=== PATIENT | male | born 1945 | race Hispanic/Latino ===

== ENCOUNTER 2019-08-13 17:25 | Emergency (ER) | payer MEDICARE ==
[2019-08-13 19:55] LABS: Basophils # (Auto) 0.1 K/mm3 (0.0-0.1); Basophils % (Auto) 0.5 % (0.0-1.8); Eosinophils % (Auto) 0.2 % (0.0-4.3); Hematocrit 38.4 % (35.5-45.6); Hemoglobin 12.4 gm/dl (11.8-15.2); Lymphocytes # (Auto) 0.9 K/mm3 (1.2-5.4); Lymphocytes % (Auto) 6.9 % (13.4-35.0); Mean Corpuscular HGB Conc 32 % (32-34); Mean Corpuscular Volume 88 fl (84-94); Monocytes # (Auto) 0.6 K/mm3 (0.0-0.8); Monocytes % (Auto) 4.8 % (0.0-7.3); Platelet Count 330 K/mm3 (140-440); Red Blood Count 4.38 M/mm3 (3.65-5.03); Red Cell Distribution Width 17.6 % (13.2-15.2)
[2019-08-13 20:16] LABS: Alanine Aminotransferase 12 units/L (7-56); Albumin 3.7 g/dL (3.9-5); BUN/Creatinine Ratio 27; Blood Urea Nitrogen 27 mg/dL (9-20); Calcium 10.2 mg/dL (8.4-10.2); Hemolysis Index 0
[2019-08-13] MEDS ORDERED: ACETAMINOPHEN 325 MG/10.15 ML ORAL LIQD UNIT DOSE FEEDTUBE ONE (20:36)
--- NOTE | 2019-08-13 20:36 | Emergency Department Report ---
HPI - General Chief Complaint: Fall Time Seen by Provider: 08/13/19 18:24 - HPI HPI: 74-year-old male presents to the emergency department from his [facility] assisted facility after the patient allegedly had a fall this morning. The patient appears to have had an x-ray done of his head/skull that did not show any fracture but was a limited examination. The patient was then sent in for further evaluation. He has a past medical history of diabetes, hypertension, Parkinson's disease, hypothyroidism, dementia, hyperlipidemia, pressure ulcers. He has a Cole catheter and a G-tube in place. The patient is a poor historian. ED Past Medical Hx - Past Medical History Previous Medical History?: Yes Hx Hypertension: Yes Hx Diabetes: Yes Hx Psychiatric Treatment: Yes Additional medical history: PARKINSON'S DISEASE, HYPOTYROIDISM, DEMENTIA, HYPERLIPIDEMIA, GERD, PRESSURE ULCER, CONTRACTURES, DYSPHAGIA, GLAUCOMA - Surgical History Past Surgical History?: Yes Additional Surgical History: G-TUBE PLACEMENT - Social History Smoking Status: Unknown if ever smoked - Medications Home Medications: Home Medications Medication Instructions Recorded Confirmed Last Taken Type Sulfamethoxazole/Trimethoprim 1 each PO BID #14 tablet 08/13/19 Unknown Rx [Bactrim DS TAB] ED Review of Systems ROS: Stated complaint: FALL Other details as noted in HPI Physical Exam - Physical Exam Vital Signs: Vital Signs 08/13/19 08/13/19 17:46 19:10 Temperature 100.7 F H Pulse Rate 118 H 112 H Respiratory 22 22 Rate Blood Pressure 127/59 Blood Pressure 127/59 127/59 [Left] O2 Sat by Pulse 93 93 Oximetry Physical Exam: GENERAL: Patient appears chronically debilitated. HENT: Normocephalic. Atraumatic. Patient has moist mucous membranes. EYES: Extraocular motions are intact. NECK: Supple. Trachea is midline. CHEST/LUNGS: Clear to auscultation. There is no respiratory distress noted. HEART/CARDIOVASCULAR: Regular. There is no tachycardia. ABDOMEN: Abdomen is soft, nontender. Patient has normal bowel sounds. There is no abdominal distention. SKIN: Patient has multiple decubitus and pressure ulcers. NEURO: Patient is awake but is nonverbal other than occasionally yelling out and does not follow commands. He has upper extremity rolling tremor consistent with his Parkinson's. MUSCULOSKELETAL: Contracted upper and lower extremities. There is no evidence of acute injury. ED Course Vital Signs 08/13/19 08/13/19 17:46 19:10 Temperature 100.7 F H Pulse Rate 118 H 112 H Respiratory 22 22 Rate Blood Pressure 127/59 Blood Pressure 127/59 127/59 [Left] O2 Sat by Pulse 93 93 Oximetry ED Medical Decision Making - Lab Data Result diagrams: 08/13/19 19:24 08/13/19 19:24 - Radiology Data Radiology results: report reviewed, image reviewed interpreted by me: Chest x-ray does not show any acute process. There are no pleural effusions, obvious pneumonia and there is no pneumothorax. X-ray of the hip does not show any fracture, dislocation, or any acute process. Exam: CT cervical spine History: Trauma; Technique: Contiguous thin cut axial images obtained through the cervical spine. Sagittal and coronal reconstructions performed by the technologist. All CT scans at this location are performed u sing CT dose reduction for ALARA by means of automated exposure control. Findings: No priors. There is no evidence of fracture or traumatic subluxation. No vertebral compression fractures; prevertebral space is normal; no fracture involving the bony canal Vertebral bodies are normal in height and alignment. Disc spaces are narrowed at multiple levels. Broad-based bony spur at C6-C7 disc level resulting in bilateral foraminal stenoses Facet joint degenerative changes in the cervical spine bilaterally; foraminal stenoses C5-C6 disc level bilaterally and at C6-C7 disc level bilaterally Surrounding soft tissues are grossly normal. Impression: No signs of acute bony trauma to the cervical spine. NONENHANCED CT SCAN OF THE HEAD: INDICATION / CLINICAL INFORMATION: 74 years Male; Trauma. TECHNIQUE: Routine CT head without contrast. All CT scans at this location are performed using CT dose reduction for ALARA by means of automated exposure control. COMPARISON: None. FINDINGS: BRAIN / INTRACRANIAL CONTENTS: No intracranial sequela from the trauma; no scalp hematoma; no air-fluid level in the visualized portions of the paranasal sinuses. No acute hemorrhage, mass effect, midline shift, or acute large territorial infarct. Third ventricle and lateral ventricles are disproportionately large compared to high convexity cortical sulci suggesting deep central involution. Both sylvian fissures are slightly prominent. No significant white matter abnormality. CRANIOCERVICAL JUNCTION: No significant abnormality. ORBITS: No significant abnormality of visualized orbits. SINUSES / MASTOIDS: No significant abnormality of the visualized paranasal sinuses or mastoid air cells. ADDITIONAL FINDINGS: None. IMPRESSION: No intracranial sequela from the trauma - Medical Decision Making This patient presents to the emergency department from his assisted facility after he had an alleged fall this morning. They initially did a skull x-ray that did not show any fracture. Today, here, we performed a CT scan of the head and cervical spine that also did not show any fractures, subluxations, bleeding or any other acute process. Patient also had a chest x-ray that did not show any pneumonia, rib fracture, pneumothorax or any other acute process. He had an x-ray of the pelvis that did not show any fracture or dislocation. Patient's labs are mostly unremarkable except for he has a urinary tract infection. He will be placed on Bactrim. The patient was given a dose of Tylenol for a low- grade fever seen that has since resolved. Vital signs are within normal limits. He will be discharged back to his assisted facility with a prescription for Bactrim. They have been instructed to have him see the primary care lucho capps in the next few days and to return to the ER with any worsening of his symptoms or any acute distress. Critical Care Time: No Critical care attestation.: If time is entered above; I have spent that time in minutes in the direct care of this critically ill patient, excluding procedure time. ED Disposition Clinical Impression: Fall Qualifiers: Encounter type: initial encounter Qualified Code(s): W19.XXXA - Unspecified fall, initial encounter UTI (urinary tract infection) Qualifiers: Urinary tract infection type: acute cystitis Hematuria presence: with hematuria Qualified Code(s): N30.01 - Acute cystitis with hematuria Disposition: TO HOME OR SELFCARE Is pt being admited?: No Condition: Stable Instructions: Fall Prevention for Older Adults (ED), Urinary Tract Infection in Men (ED) Additional Instructions: Please have this patient follow-up with a primary care physician in the next few days. Return to the emergency department with any worsening of his symptoms or any acute distress. Prescriptions: Sulfamethoxazole/Trimethoprim [Bactrim DS TAB] 1 each PO BID #14 tablet Referrals: PRIMARY CAREMD [Primary Care Provider] - 2-3 Days Time of Disposition: 22:48
--- NOTE | 2019-08-13 20:39 | Cat Scan Report ---
NONENHANCED CT SCAN OF THE HEAD: INDICATION / CLINICAL INFORMATION: 74 years Male; Trauma. TECHNIQUE: Routine CT head without contrast. All CT scans at this location are performed using CT dos e reduction for ALARA by means of automated exposure control. COMPARISON: None. FINDINGS: BRAIN / INTRACRANIAL CONTENTS: No intracranial sequela from the trauma; no scalp hematoma; no air-flu id level in the visualized portions of the paranasal sinuses. No acute hemorrhage, mass effect, midline shift, or acute large territorial infarct. Third ventricle and lateral ventricles are disproportionately large compared to high convexity cortical sulci suggest ing deep central involution. Both sylvian fissures are slightly prominent. No significant white matte r abnormality. CRANIOCERVICAL JUNCTION: No significant abnormality. ORBITS: No significant abnormality of visualized orbits. SINUSES / MASTOIDS: No significant abnormality of the visualized paranasal sinuses or mastoid air margarita ls. ADDITIONAL FINDINGS: None. IMPRESSION: No intracranial sequela from the trauma Signer Name: Charlotte Mcclendon MD Signed: 08/13/2019 8:35 PM Workstation Name: [email or web address]
[2019-08-13 21:00] LABS: Bacteria,Urine 3+ /HPF (Negative); Bilirubin,Urine NEG (Negative); Blood,Urine NEG (Negative); Color,Urine Yellow (Yellow); Mucus,Urine 1+ /HPF; Urobilinogen,Urine < 2.0 mg/dL (<2.0)
[2019-08-13 21:03] LABS: Protein,Urine >500 mg/dL (Negative); RBC,Urine > 182.0 /HPF (0.0-6.0)
[2019-08-13] MEDS ORDERED: SULFAMETHOXAZOLE/TRIMETHOPRIM 800/160MG DS TAB PO ONE (21:05)
--- NOTE | 2019-08-13 21:10 | Cat Scan Report ---
Exam: CT cervical spine History: Trauma; Technique: Contiguous thin cut axial images obtained through the cervical spine. Sagittal and sarah l reconstructions performed by the technologist. All CT scans at this location are performed using CT dose reduction for ALARA by means of automated exposure control. Findings: No priors. There is no evidence of fracture or traumatic subluxation. No vertebral compression fractures; prever tebral space is normal; no fracture involving the bony canal Vertebral bodies are normal in height and alignment. Disc spaces are narrowed at multiple levels. Broad-based bony spur at C6-C7 disc level resulting in bilateral foraminal stenoses Facet joint degenerative changes in the cervical spine bilaterally; foraminal stenoses C5-C6 disc lev el bilaterally and at C6-C7 disc level bilaterally Surrounding soft tissues are grossly normal. Impression: No signs of acute bony trauma to the cervical spine. Signer Name: Charlotte Mcclendon MD Signed: 08/13/2019 9:05 PM Workstation Name: [id number]
--- NOTE | 2019-08-13 21:30 | XRay Report ---
PELVIS 1 VIEW(S) INDICATION / CLINICAL INFORMATION: MAIN: Trauma; EMS REPORTED [facility] PT HAD A FALL THIS AM , CT WAS DONE, BUT THE FACILITY STILL WANT ED PT TO BE EVALUATED. SMALL LACERATION TO RIGHT PARIETAL AREA COMPARISON: None available. FINDINGS: No acute fracture of the pelvis is identified. Limited evaluation secondary to suboptimal p ositioning and advanced degenerative changes. No obvious compression fracture in the lumbar spine whe re visualized. Evaluation of the hips is poor due to abnormal alignment and severe bilateral hip oste oarthrosis. If the patient has new inability to bear weight or complains of hip or pelvic pain, consi ramón noncontrast MRI or CT evaluation. Signer Name: Manuel Kebede MD Signed: 08/13/2019 9:26 PM Workstation Name: [id number]
--- NOTE | 2019-08-13 21:31 | XRay Report ---
CHEST 1 VIEW INDICATION / CLINICAL INFORMATION: MAIN: Trauma; PAT. CONTRACTED AND SHAKING UNCONTROLLABLY; BEST IMAGES POSSIBLE. COMPARISON: None available. FINDINGS: SUPPORT DEVICES: Right-sided clavian pacemaker with intact right atrial and right ventricular leads. HEART / MEDIASTINUM: No significant abnormality. LUNGS / PLEURA: No significant pulmonary or pleural abnormality. No pneumothorax. No acute skeletal abnormality is identified. IMPRESSION: No acute finding. Signer Name: Manuel Kebede MD Signed: 08/13/2019 9:27 PM Workstation Name: [id number]
[2019-08-13 22:31] VITALS: BP 127/74
== END 2019-08-14 01:40 | disposition home or self-care (01) ==
LOC: ED 17:25
DX: N39.0 Urinary tract infection, site not specified (principal); R51 Headache; I10 Essential (primary) hypertension; E11.9 Type 2 diabetes mellitus without complications; K21.9 Gastro-esophageal reflux disease without esophagitis; F03.90 Unspecified dementia, unspecified severity, without behavioral disturbance, psychotic disturbance, mood disturbance, and anxiety; G20 Parkinson's disease; F02.80 Dementia in other diseases classified elsewhere, unspecified severity, without behavioral disturbance, psychotic disturbance, mood disturbance, and anxiety; E03.9 Hypothyroidism, unspecified; W19.XXXA Unspecified fall, initial encounter; Y93.89 Activity, other specified; Y92.89 Other specified places as the place of occurrence of the external cause
CPT/HCPCS: 36415; 70450; 71045; 72125; 72170; 80053; 81001; 82962; 85025; 86850; 86900; 86901; 87076; 87086; 87186

== ENCOUNTER 2019-09-10 16:00 | Inpatient (IN) | payer MEDICARE ==
[2019-09-10] MEDS ORDERED: SODIUM CHLORIDE 0.9% 1000 ML 2,000 ML ONE (16:19)
[2019-09-10] MEDS ORDERED: SODIUM CHLORIDE 0.9% 500 ML 500 ML IV ONE (16:31)
[2019-09-10] MEDS ORDERED: SODIUM CHLORIDE 0.9% 1000 ML 1,000 ML IV ONE ×2 (16:32→17:26)
--- NOTE | 2019-09-10 16:43 | Emergency Department Report ---
HPI - General Chief Complaint: Seizure Time Seen by Provider: 09/10/19 16:30 - HPI HPI: 74-year-old male presents to the emergency department via EMS from [facility] with the complaint of seizure-like activity and altered mental status. The patient was also found to have a fever, low blood pressure. He was given some IV fluid in route. He has a past medical history of hypothyroidism, quadriplegia, aas-otqcwsa-uzeeojkpq diabetes, GERD, hyperlipidemia, Parkinson's disease, schizophrenia. The patient is a poor historian. Apparently the patient recently had his Cole catheter changed out. EMS report says that the patient is usually rather conversive. However there is a diagnosis on his transfer report saying the patient has a aphasia. ED Past Medical Hx - Past Medical History Hx Hypertension: Yes Hx Diabetes: Yes Hx Psychiatric Treatment: Yes Additional medical history: PARKINSON'S DISEASE, HYPOTYROIDISM, DEMENTIA, HYPERLIPIDEMIA, GERD, PRESSURE ULCER, CONTRACTURES, DYSPHAGIA, GLAUCOMA - Surgical History Additional Surgical History: G-TUBE PLACEMENT - Social History Smoking Status: Unknown if ever smoked - Medications Home Medications: Home Medications Medication Instructions Recorded Confirmed Last Taken Type Acetaminophen [Acetaminophen ORAL 160 mg PO Q4HR PRN 09/10/19 09/10/19 Unknown History LIQ] Aspirin [Aspirin BABY CHEW TAB] 81 mg PO QDAY 09/10/19 09/10/19 Unknown History Baclofen [Ozobax] 5 mg PO BID 09/10/19 09/10/19 Unknown History Brimonidine Tartrate [Brimonidine 1 drop OU Q8HR 09/10/19 09/10/19 Unknown History Tartrate 0.2%] Cholecalciferol (Vitamin D3) 1,000 unit PO QDAY 09/10/19 09/10/19 Unknown History [Vitamin D3 500U/5ML] Docusate Sodium [Colace ORAL LIQ] 100 mg FEEDTUBE QDAY 09/10/19 09/10/19 Unknown History Emollient Combination No.112 454 gm TP Q6HR 09/10/19 09/10/19 Unknown History [Emollient Cream] Gabapentin [Neurontin] 300 mg PO Q8HR 09/10/19 09/10/19 Unknown History Insulin Glargine,Hum.rec.anlog 28 unit SQ QAM 09/10/19 09/10/19 Unknown History [Basaglar Kwikpen U-100] Latanoprost 0.005% [Xalatan 0.005%] 1 drop OP QPM 09/10/19 09/10/19 Unknown History Levothyroxine [Synthroid] 100 mcg PO QAM 09/10/19 09/10/19 Unknown History Lidocaine 5 gm TP Q12HR 09/10/19 09/10/19 Unknown History Lispro Insulin [HumaLOG] 0 unit SQ ACHS 09/10/19 09/10/19 Unknown History Magnesium Hydroxide [Milk of 30 mg PO QDAY 09/10/19 09/10/19 Unknown History Magnesia] Melatonin 3 mg PO QHS 09/10/19 09/10/19 Unknown History Metoprolol [Lopressor] 12.5 mg PO BID 09/10/19 09/10/19 Unknown History Multivitamin [Multiple Vitamins] 1 each PO QDAY 09/10/19 09/10/19 Unknown History Nutritional Supplement/Fiber 30 ml PO QDAY 09/10/19 09/10/19 Unknown History [Promote with Fiber Liquid] Quetiapine Fumarate [SEROquel XR] 50 mg PO QHS 09/10/19 09/10/19 Unknown History Sennosides [Senna] 8.6 mg PO QDAY 09/10/19 09/10/19 Unknown History metroNIDAZOLE [metroNIDAZOLE GEL 55 gm TP QDAY 09/10/19 09/10/19 Unknown History 1% TOPICAL] traMADoL [Ultram] 50 mg PO Q8HR 09/10/19 09/10/19 Unknown History ED Review of Systems ROS: Stated complaint: SEIZURE Other details as noted in HPI Comment: Unobtainable due to pts medical conditions Physical Exam - Physical Exam Vital Signs: Vital Signs 09/10/19 16:30 Temperature 102.7 F H Physical Exam: GENERAL: Patient is ill-appearing. HENT: Normocephalic. Atraumatic. Patient has moist mucous membranes. EYES: Pupils equal reactive to light bilaterally. NECK: Supple. Trachea is midline. CHEST/LUNGS: Clear to auscultation. Mild tachypnea but no accessory muscle use. HEART/CARDIOVASCULAR: Regular. There is mild tachycardia. There is no murmur. ABDOMEN: Abdomen is soft, nontender. Patient has normal bowel sounds. SKIN: Skin is hot but dry. NEURO: Patient is ill-appearing and mostly unresponsive. Withdraws from painful stimuli. Nonverbal. Not following commands. MUSCULOSKELETAL: There is no obvious deformity. ED Course Vital Signs 09/10/19 16:30 Temperature 102.7 F H - Reevaluation(s) Reevaluation #1: 09/10/19 22:43 Lab Results 09/10/19 09/10/19 09/10/19 Range/Units 16:20 16:20 16:20 WBC 23.3 H (4.5-11.0) K/mm3 RBC 3.37 L (3.65-5.03) M/mm3 Hgb 9.5 L (11.8-15.2) gm/dl Hct 30.5 L (35.5-45.6) % MCV 90 (84-94) fl MCH 28 (28-32) pg MCHC 31 L (32-34) % RDW 18.6 H (13.2-15.2) % Plt Count 294 (140-440) K/mm3 Add Manual Diff Complete Total Counted 100 Seg Neutrophils % Endbander Seg Neuts % (Manual) 75.0 H (40.0-70.0) % Band Neutrophils % 21.0 % Lymphocytes % (Manual) 2.0 L (13.4-35.0) % Reactive Lymphs % (Man) 0 % Monocytes % (Manual) 0 (0.0-7.3) % Eosinophils % (Manual) 0 (0.0-4.3) % Basophils % (Manual) 0 (0.0-1.8) % Metamyelocytes % 2.0 % Myelocytes % 0 % Promyelocytes % 0 % Blast Cells % 0 % Nucleated RBC % Not Reportable Seg Neutrophils # Man 17.5 H (1.8-7.7) K/mm3 Band Neutrophils # 4.9 K/mm3 Lymphocytes # (Manual) 0.5 L (1.2-5.4) K/mm3 Abs React Lymphs (Man) 0.0 K/mm3 Monocytes # (Manual) 0.0 (0.0-0.8) K/mm3 Eosinophils # (Manual) 0.0 (0.0-0.4) K/mm3 Basophils # (Manual) 0.0 (0.0-0.1) K/mm3 Metamyelocytes # 0.5 K/mm3 Myelocytes # 0.0 K/mm3 Promyelocytes # 0.0 K/mm3 Blast Cells # 0.0 K/mm3 WBC Morphology Not Reportable Hypersegmented Neuts Not Reportable Hyposegmented Neuts Not Reportable Hypogranular Neuts Not Reportable Smudge Cells Not Reportable Toxic Granulation Not Reportable Toxic Vacuolation Not Reportable Dohle Bodies Not Reportable Pelger-Huet Anomaly Not Reportable Deny Rods Not Reportable Platelet Estimate Consistent w auto Clumped Platelets Not Reportable Plt Clumps, EDTA Not Reportable Large Platelets 1+ Giant Platelets Not Reportable Platelet Satelliting Not Reportable Plt Morphology Comment Not Reportable RBC Morphology Not Reportable Dimorphic RBCs Not Reportable Polychromasia Not Reportable Hypochromasia Not Reportable Poikilocytosis Not Reportable Anisocytosis Few Microcytosis Not Reportable Macrocytosis Not Reportable Spherocytes Not Reportable Pappenheimer Bodies Not Reportable Sickle Cells Not Reportable Target Cells Not Reportable Tear Drop Cells Not Reportable Ovalocytes Not Reportable Helmet Cells Not Reportable Leonardo-Saxman Bodies Not Reportable [place] Rings Not Reportable [place] Cells Not Reportable Bite Cells Not Reportable Crenated Cell Not Reportable Elliptocytes Not Reportable Acanthocytes (Spur) Not Reportable Rouleaux Not Reportable Hemoglobin C Crystals Not Reportable Schistocytes Not Reportable Malaria parasites Not Reportable Gonsalo Bodies Not Reportable Hem Pathologist Commnt No VBG pH (7.320-7.420) Sodium 143 (137-145) mmol/L Potassium 4.2 (3.6-5.0) mmol/L Chloride 107.2 H (98-107) mmol/L Carbon Dioxide 20 L (22-30) mmol/L Anion Gap 20 mmol/L BUN 75 H (9-20) mg/dL Creatinine 3.6 H (0.8-1.5) mg/dL Estimated GFR 17 ml/min BUN/Creatinine Ratio 21 % Glucose 281 H (75-100) mg/dL POC Glucose (70-105) Lactic Acid 4.70 H* (0.7-2.0) mmol/L Calcium 8.8 (8.4-10.2) mg/dL Ferritin (13.0-400.0) ng/mL Total Bilirubin 0.20 (0.1-1.2) mg/dL AST 45 H (5-40) units/L ALT 22 (7-56) units/L Alkaline Phosphatase 114 (35-129) units/L Lactate Dehydrogenase (91-180) units/L Troponin T 0.238 H* (0.00-0.029) ng/mL C-Reactive Protein (0.00-1.30) mg/dL Total Protein 5.7 L (6.3-8.2) g/dL Albumin 2.8 L (3.9-5) g/dL Albumin/Globulin Ratio 1.0 % Triglycerides 89 (2-149) mg/dL Cholesterol 101 (50-199) mg/dL LDL Cholesterol Direct 61 (50-130) mg/dL HDL Cholesterol 31 L (40-59) mg/dL Cholesterol/HDL Ratio 3.25 % TSH (0.270-4.200) mlU/mL 09/10/19 09/10/19 09/10/19 Range/Units 16:20 16:20 16:23 WBC (4.5-11.0) K/mm3 RBC (3.65-5.03) M/mm3 Hgb (11.8-15.2) gm/dl Hct (35.5-45.6) % MCV (84-94) fl MCH (28-32) pg MCHC (32-34) % RDW (13.2-15.2) % Plt Count (140-440) K/mm3 Add Manual Diff Total Counted Seg Neutrophils % Seg Neuts % (Manual) (40.0-70.0) % Band Neutrophils % % Lymphocytes % (Manual) (13.4-35.0) % Reactive Lymphs % (Man) % Monocytes % (Manual) (0.0-7.3) % Eosinophils % (Manual) (0.0-4.3) % Basophils % (Manual) (0.0-1.8) % Metamyelocytes % % Myelocytes % % Promyelocytes % % Blast Cells % % Nucleated RBC % Seg Neutrophils # Man (1.8-7.7) K/mm3 Band Neutrophils # K/mm3 Lymphocytes # (Manual) (1.2-5.4) K/mm3 Abs React Lymphs (Man) K/mm3 Monocytes # (Manual) (0.0-0.8) K/mm3 Eosinophils # (Manual) (0.0-0.4) K/mm3 Basophils # (Manual) (0.0-0.1) K/mm3 Metamyelocytes # K/mm3 Myelocytes # K/mm3 Promyelocytes # K/mm3 Blast Cells # K/mm3 WBC Morphology Hypersegmented Neuts Hyposegmented Neuts Hypogranular Neuts Smudge Cells Toxic Granulation Toxic Vacuolation Dohle Bodies Pelger-Huet Anomaly Deny Rods Platelet Estimate Clumped Platelets Plt Clumps, EDTA Large Platelets Giant Platelets Platelet Satelliting Plt Morphology Comment RBC Morphology Dimorphic RBCs Polychromasia Hypochromasia Poikilocytosis Anisocytosis Microcytosis Macrocytosis Spherocytes Pappenheimer Bodies Sickle Cells Target Cells Tear Drop Cells Ovalocytes Helmet Cells Leonardo-Saxman Bodies [place] Rings Marlo Cells Bite Cells Crenated Cell Elliptocytes Acanthocytes (Spur) Rouleaux Hemoglobin C Crystals Schistocytes Malaria parasites Gonsalo Bodies Hem Pathologist Commnt VBG pH (7.320-7.420) Sodium (137-145) mmol/L Potassium (3.6-5.0) mmol/L Chloride (98-107) mmol/L Carbon Dioxide (22-30) mmol/L Anion Gap mmol/L BUN (9-20) mg/dL Creatinine (0.8-1.5) mg/dL Estimated GFR ml/min BUN/Creatinine Ratio % Glucose (75-100) mg/dL POC Glucose 287 H (70-105) Lactic Acid (0.7-2.0) mmol/L Calcium (8.4-10.2) mg/dL Ferritin 204.6 (13.0-400.0) ng/mL Total Bilirubin (0.1-1.2) mg/dL AST (5-40) units/L ALT (7-56) units/L Alkaline Phosphatase (35-129) units/L Lactate Dehydrogenase (91-180) units/L Troponin T (0.00-0.029) ng/mL C-Reactive Protein (0.00-1.30) mg/dL Total Protein (6.3-8.2) g/dL Albumin (3.9-5) g/dL Albumin/Globulin Ratio % Triglycerides (2-149) mg/dL Cholesterol (50-199) mg/dL LDL Cholesterol Direct (50-130) mg/dL HDL Cholesterol (40-59) mg/dL Cholesterol/HDL Ratio % TSH 2.520 (0.270-4.200) mlU/mL 09/10/19 09/10/19 09/10/19 Range/Units 16:32 18:15 18:15 WBC (4.5-11.0) K/mm3 RBC (3.65-5.03) M/mm3 Hgb (11.8-15.2) gm/dl Hct (35.5-45.6) % MCV (84-94) fl MCH (28-32) pg MCHC (32-34) % RDW (13.2-15.2) % Plt Count (140-440) K/mm3 Add Manual Diff Total Counted Seg Neutrophils % Seg Neuts % (Manual) (40.0-70.0) % Band Neutrophils % % Lymphocytes % (Manual) (13.4-35.0) % Reactive Lymphs % (Man) % Monocytes % (Manual) (0.0-7.3) % Eosinophils % (Manual) (0.0-4.3) % Basophils % (Manual) (0.0-1.8) % Metamyelocytes % % Myelocytes % % Promyelocytes % % Blast Cells % % Nucleated RBC % Seg Neutrophils # Man (1.8-7.7) K/mm3 Band Neutrophils # K/mm3 Lymphocytes # (Manual) (1.2-5.4) K/mm3 Abs React Lymphs (Man) K/mm3 Monocytes # (Manual) (0.0-0.8) K/mm3 Eosinophils # (Manual) (0.0-0.4) K/mm3 Basophils # (Manual) (0.0-0.1) K/mm3 Metamyelocytes # K/mm3 Myelocytes # K/mm3 Promyelocytes # K/mm3 Blast Cells # K/mm3 WBC Morphology Hypersegmented Neuts Hyposegmented Neuts Hypogranular Neuts Smudge Cells Toxic Granulation Toxic Vacuolation Dohle Bodies Pelger-Huet Anomaly Deny Rods Platelet Estimate Clumped Platelets Plt Clumps, EDTA Large Platelets Giant Platelets Platelet Satelliting Plt Morphology Comment RBC Morphology Dimorphic RBCs Polychromasia Hypochromasia Poikilocytosis Anisocytosis Microcytosis Macrocytosis Spherocytes Pappenheimer Bodies Sickle Cells Target Cells Tear Drop Cells Ovalocytes Helmet Cells Leonardo-Saxman Bodies [place] Rings Marlo Cells Bite Cells Crenated Cell Elliptocytes Acanthocytes (Spur) Rouleaux Hemoglobin C Crystals Schistocytes Malaria parasites Gonsalo Bodies Hem Pathologist Commnt VBG pH 7.160 L* (7.320-7.420) Sodium (137-145) mmol/L Potassium (3.6-5.0) mmol/L Chloride (98-107) mmol/L Carbon Dioxide (22-30) mmol/L Anion Gap mmol/L BUN (9-20) mg/dL Creatinine (0.8-1.5) mg/dL Estimated GFR ml/min BUN/Creatinine Ratio % Glucose (75-100) mg/dL POC Glucose (70-105) Lactic Acid 6.10 H* (0.7-2.0) mmol/L Calcium (8.4-10.2) mg/dL Ferritin (13.0-400.0) ng/mL Total Bilirubin (0.1-1.2) mg/dL AST (5-40) units/L ALT (7-56) units/L Alkaline Phosphatase (35-129) units/L Lactate Dehydrogenase 308 H (91-180) units/L Troponin T (0.00-0.029) ng/mL C-Reactive Protein 16.50 H (0.00-1.30) mg/dL Total Protein (6.3-8.2) g/dL Albumin (3.9-5) g/dL Albumin/Globulin Ratio % Triglycerides (2-149) mg/dL Cholesterol (50-199) mg/dL LDL Cholesterol Direct (50-130) mg/dL HDL Cholesterol (40-59) mg/dL Cholesterol/HDL Ratio % TSH (0.270-4.200) mlU/mL - Central Line Placement Left IJ Consent Obtained: emergent situation Time Out Performed: Yes Patient Placed on Monitor/Pulse Ox: Yes MD Prep: mask, gown, gloves Central Line Prep: Chlorhexidine scrub Local Anesthesia Used: Lidocaine 1% Amount of Anesthesia Used (mls): 2 Ultrasound Used for Placement: Yes Central Line Lumen Inserted: triple Bloods Obtained for Lab: No Central Line Position: good blood return, all ports aspirated, flus, sutured in place with nyl Dressing Applied: Tegaderm, sterile gauze/tape Post Procedure X-Ray: tip of catheter in good p Patient Tolerated Procedure: well Complications: none ED Medical Decision Making - Lab Data Result diagrams: 09/10/19 16:20 09/10/19 16:20 - EKG Data -: EKG Interpreted by Me Rate: normal - EKG Data When compared to previous EKG there are: previous EKG unavailable Interpretation: other (Atrial sensed ventricular paced rhythm, rate of 97, left axis deviation) - Radiology Data Radiology results: report reviewed, image reviewed interpreted by me: Chest x-ray does not show any acute process. There are no pleural effusions, obvious pneumonia and there is no pneumothorax. CT head/brain wo con INDICATION / CLINICAL INFORMATION: 74 years Male; AMS. TECHNIQUE: Routine CT head without contrast. All CT scans at this location are performed using CT dose reduction for [employer] by means of automated exposure control. COMPARISON: The study is compared to the previous CT of 08/13/2019. FINDINGS: BRAIN / INTRACRANIAL CONTENTS: There is mild cerebral white matter disease most consistent with microvascular angiopathy. The findings appear to correlate with the previous CT. There is suggestion of chronic ischemic changes along the posterior cerebellum. There are foci of calcification within the basal ganglia. There is no clear CT evidence of acute intracranial hemorrhage or significant mass effect. There is continued cerebral atrophy and prominence of the ventricular system which correlates with the prior study at. ORBITS: No significant abnormality of visualized orbits. SINUSES / MASTOIDS: No significant abnormality the visualized paranasal sinuses or mastoid air cells. CRANIOCERVICAL JUNCTION: No significant abnormality. ADDITIONAL FINDINGS: None. IMPRESSION: 1. There is continued mild microvascular angiopathy and cerebral atrophy without CT evidence of acute intracranial hemorrhage. CT ABDOMEN AND PELVIS WITHOUT CONTRAST INDICATION / CLINICAL INFORMATION: Acute renal failure, hematuria. TECHNIQUE: Axial CT images were obtained through the abdomen and pelvis without IV contrast. All CT scans at this location are performed using CT dose reduction for [employer] by means of automated exposure control. COMPARISON: None available. FINDINGS: LOWER CHEST: Peripheral/sub pleural atelectatic change in the visualized right lower lobe. No pleural fluid. Pacemaker leads are incompletely imaged. Mild cardiomegaly. No significant volume of pericardial fluid is evident. LIVER: Unremarkable within limitations imposed by noncontrast technique. GALLBLADDER: No calcified stones or evidence of acute inflammation. BILE DUCTS: No significant abnormality. PANCREAS: No significant abnormality. SPLEEN: No significant abnormality. ADRENALS: No significant abnormality. RIGHT KIDNEY and URETER: Kidney is unremarkable within limitations of noncontrast technique. No calyceal dilatation is appreciated, but the entire ureter is mildly dilated. LEFT KIDNEY and URETER: Similar to the right kidney. No calyceal dilatation, but there is mild ureteral nephrosis. No calculus. STOMACH and SMALL BOWEL: Gastrostomy tube appears to be well placed. Moderate volume of fluid in the stomach. No acute inflammatory or obstructive changes in the small bowel. COLON: Moderate to large volume of fecal material throughout the colon, with distention of the rectum. APPENDIX: Not definitely identified. No evidence of acute inflammatory process in the right lower quadrant. PERITONEUM: Tiny volume of simple free fluid in the lower abdominopelvic cavity. No free air. No fluid collection. LYMPH NODES: Within limitations of noncontrast technique, no abdominal or pelvic lymphadenopathy. AORTA and ARTERIES: Mild atherosclerosis. No aneurysm. IVC and VEINS: Unremarkable by noncontrast evaluation. URINARY BLADDER: The bladder is decompressed by Cole catheter. Evaluation is also limited by noncontrast technique. There is apparent diffuse thickening of the bladder wall that may be artifactual. REPRODUCTIVE ORGANS: No significant abnormality. ADDITIONAL FINDINGS: None. SKELETAL SYSTEM: No acute abnormality. IMPRESSION: 1. Mild, symmetric bilateral ureteronephrosis of uncertain etiology. There is questionable thickening of the bladder wall, but evaluation is severely limited. Correlate with urinalysis. 2. Partial atelectasis of the right lower lobe peripherally. 3. Well-positioned gastrostomy tube. 4. Trace ascites. - Medical Decision Making This patient presents to the emergency department from home with a complaint of some questionable seizure-like activity and altered mental status. The patient was found to have a fever with a temperature of about 102 F and hypotension. He was given a total of 2.5 L of IV fluid resuscitation. At that time, the patient still had hypotension, a central line was placed and the patient was started on pressors. Chest x-ray does not show any obvious pneumonia, pleural effusions, or any other acute process. Eventually a CT scan of the head without contrast was done that did not show any acute bleed, shift, mass, ischemia, or any other acute process. Patient has multiple abnormal labs including a lennox kocytosis of 23,000 with left shift and bandemia. The patient has a hemoglobin of 9.5. There is both a venous and lactic acidosis. Patient has acute renal failure, elevated troponin level, UTI, elevated CRP. Blood cultures have been sent and the patient was started on antibiotics. Negative for rapid flu. Patient has been placed in droplet precautions and isolation. Even given the lab appearance of a bacterial infection, the patient could potentially have underlying COVID-19. During my interaction with the patient I was in full PPE including surgical, and 95 mask, gown, double gloves and eye protection. This patient will be admitted to the ICU for further evaluation and treatment and was accepted for admission by the hospitalist, Dr. Vega. Critical Care Time: Yes Critical care time in (mins) excluding proc time.: 75 Critical care attestation.: If time is entered above; I have spent that time in minutes in the direct care of this critically ill patient, excluding procedure time. Due to the immediate potential for life-threatening deterioration due to underlying renal, pulmonary, metabolic conditions, and in treatment of his septic shock, I spent 75 minutes of critical care time with the patient. Critical Care Time: 75 minutes ED Disposition Clinical Impression: Septic shock, Lactic acidosis, Elevated troponin UTI (urinary tract infection) Qualifiers: Urinary tract infection type: acute cystitis Hematuria presence: with hematuria Qualified Code(s): N30.01 - Acute cystitis with hematuria Acute renal failure Qualifiers: Acute renal failure type: unspecified Qualified Code(s): N17.9 - Acute kidney failure, unspecified Disposition: OP ADMIT IP TO THIS HOSP Is pt being admited?: Yes Condition: Critical Time of Disposition: 21:20
[2019-09-10 16:47] LABS: Hematocrit 30.5 % (35.5-45.6); Hemoglobin 9.5 gm/dl (11.8-15.2); Mean Corpuscular HGB Conc 31 % (32-34); Mean Corpuscular Volume 90 fl (84-94); Platelet Count 294 K/mm3 (140-440); Red Blood Count 3.37 M/mm3 (3.65-5.03); Red Cell Distribution Width 18.6 % (13.2-15.2)
[2019-09-10 17:02] LABS: C-Reactive Protein 16.5 mg/dL (0.00-1.30)
[2019-09-10 17:04] LABS: Albumin 2.8 g/dL (3.9-5)
[2019-09-10] MEDS ORDERED: ACETAMINOPHEN 650 MG RECT SUPP PR ONE (17:04)
[2019-09-10 17:14] LABS: Bacteria,Urine 1+ /HPF (Negative); Bilirubin,Urine NEG (Negative); Blood,Urine MOD (Negative); Color,Urine Red (Yellow); Urobilinogen,Urine < 2.0 mg/dL (<2.0)
[2019-09-10 17:16] LABS: Protein,Urine >500 mg/dL (Negative); RBC,Urine > 182.0 /HPF (0.0-6.0)
[2019-09-10 17:16] LABS: Calcium 8.8 mg/dL (8.4-10.2)
[2019-09-10] MEDS ORDERED: cefTRIAXone/NS 1 GM/50 ML 1 GM/50 ML BAG IV ONE (17:23)
[2019-09-10 17:36] LABS: Chol/HDL Ratio 3.25 %
[2019-09-10 17:38] LABS: Band Neutrophils # (Manual) 4.9 K/mm3; Basophils % (Manual) 0 % (0.0-1.8); Eosinophils % (Manual) 0 % (0.0-4.3); Monocytes % (Manual) 0 % (0.0-7.3); Total Cells Counted 100
[2019-09-10 17:39] LABS: Anisocytosis Few; Large Platelets 1+; Platelet Estimate Consistent w Auto
--- NOTE | 2019-09-10 17:56 | XRay Report ---
CHEST 1 VIEW INDICATION / CLINICAL INFORMATION: SOB. COMPARISON: 08/13/2019 FINDINGS: SUPPORT DEVICES: Pacemaker remains in place on the right. HEART / MEDIASTINUM: No significant abnormality. LUNGS / PLEURA: Left lung is clear. There is slight right basilar atelectasis. No definite infiltrate , edema or effusion. No pneumothorax. ADDITIONAL FINDINGS: No significant additional findings. IMPRESSION: 1. No significant change Signer Name: Benji Kirkpatrick MD Signed: 09/10/2019 5:51 PM Workstation Name: [id number]
[2019-09-10] MEDS: NORepinephrine/NS 4 MG-250 ML 4 MG/250 ML BAG IV SCH ×2 (19:45→23:28)
--- NOTE | 2019-09-10 20:26 | XRay Report ---
CHEST 1 VIEW INDICATION / CLINICAL INFORMATION: central line. COMPARISON: Chest radiograph same day at 5:09 PM, 08/13/2019 chest radiograph FINDINGS: SUPPORT DEVICES: Newly placed left IJ central line projects in satisfactory position with the tip in the region of the innominate/caval confluence. Pacemaker unchanged. HEART / MEDIASTINUM: Stable. LUNGS / PLEURA: Lower lung volumes with increased elevation of the right diaphragm and accentuated at electatic changes and crowding of pulmonary vascular and interstitial markings. No pneumothorax. No acute fracture. Marked elevation of the distal end of the right clavicle relative to the acromion is noted, but this was also present on 08/13/2019. IMPRESSION: Low lung volumes with associated atelectatic changes in crowding of vascular markings. Satisfactory central line position. No pneumothorax. Signer Name: Manuel Kebede MD Signed: 09/10/2019 8:22 PM Workstation Name: [id number]
--- NOTE | 2019-09-10 20:53 | Cat Scan Report ---
CT head/brain wo con INDICATION / CLINICAL INFORMATION: 74 years Male; AMS. TECHNIQUE: Routine CT head without contrast. All CT scans at this location are performed using CT dos e reduction for ALARA by means of automated exposure control. COMPARISON: The study is compared to the previous CT of 08/13/2019. FINDINGS: BRAIN / INTRACRANIAL CONTENTS: There is mild cerebral white matter disease most consistent with micro vascular angiopathy. The findings appear to correlate with the previous CT. There is suggestion of ch ronic ischemic changes along the posterior cerebellum. There are foci of calcification within the bas al ganglia. There is no clear CT evidence of acute intracranial hemorrhage or significant mass effect . There is continued cerebral atrophy and prominence of the ventricular system which correlates with th e prior study at. ORBITS: No significant abnormality of visualized orbits. SINUSES / MASTOIDS: No significant abnormality the visualized paranasal sinuses or mastoid air cells. CRANIOCERVICAL JUNCTION: No significant abnormality. ADDITIONAL FINDINGS: None. IMPRESSION: 1. There is continued mild microvascular angiopathy and cerebral atrophy without CT evidence of acute intracranial hemorrhage. Signer Name: Jamir Gonzáles MD Signed: 09/10/2019 8:49 PM Workstation Name: [id number]
--- NOTE | 2019-09-10 21:10 | Cat Scan Report ---
CT ABDOMEN AND PELVIS WITHOUT CONTRAST INDICATION / CLINICAL INFORMATION: Acute renal failure, hematuria. TECHNIQUE: Axial CT images were obtained through the abdomen and pelvis without IV contrast. All CT scans at [facility] are performed using CT dose reduction for ALARA by means of automated exposure control. COMPARISON: None available. FINDINGS: LOWER CHEST: Peripheral/subpleural atelectatic change in the visualized right lower lobe. No pleural fluid. Pacemaker leads are incompletely imaged. Mild cardiomegaly. No significant volume of pericardi al fluid is evident. LIVER: Unremarkable within limitations imposed by noncontrast technique. GALLBLADDER: No calcified stones or evidence of acute inflammation. BILE DUCTS: No significant abnormality. PANCREAS: No significant abnormality. SPLEEN: No significant abnormality. ADRENALS: No significant abnormality. RIGHT KIDNEY and URETER: Kidney is unremarkable within limitations of noncontrast technique. No calyc eal dilatation is appreciated, but the entire ureter is mildly dilated. LEFT KIDNEY and URETER: Similar to the right kidney. No calyceal dilatation, but there is mild ureter al nephrosis. No calculus. STOMACH and SMALL BOWEL: Gastrostomy tube appears to be well placed. Moderate volume of fluid in the stomach. No acute inflammatory or obstructive changes in the small bowel. COLON: Moderate to large volume of fecal material throughout the colon, with distention of the rectum . APPENDIX: Not definitely identified. No evidence of acute inflammatory process in the right lower jyothi drant. PERITONEUM: Tiny volume of simple free fluid in the lower abdominopelvic cavity. No free air. No flui d collection. LYMPH NODES: Within limitations of noncontrast technique, no abdominal or pelvic lymphadenopathy. AORTA and ARTERIES: Mild atherosclerosis. No aneurysm. IVC and VEINS: Unremarkable by noncontrast evaluation. URINARY BLADDER: The bladder is decompressed by Cole catheter. Evaluation is also limited by noncont rast technique. There is apparent diffuse thickening of the bladder wall that may be artifactual. REPRODUCTIVE ORGANS: No significant abnormality. ADDITIONAL FINDINGS: None. SKELETAL SYSTEM: No acute abnormality. IMPRESSION: 1. Mild, symmetric bilateral ureteronephrosis of uncertain etiology. There is questionable thickenin g of the bladder wall, but evaluation is severely limited. Correlate with urinalysis. 2. Partial atelectasis of the right lower lobe peripherally. 3. Well-positioned gastrostomy tube. 4. Trace ascites. Signer Name: Manuel Kebede MD Signed: 09/10/2019 9:06 PM Workstation Name: [id number]
[2019-09-10] MEDS ORDERED: ACETAMINOPHEN 650 MG RECT SUPP PR PRN (23:07)
[2019-09-10] MEDS ORDERED: NALOXONE 0.4 MG/1 ML INJ IV PRN (23:07)
[2019-09-10] MEDS ORDERED: HYDROCORTISONE SOD SUCC 100 MG/2 ML VIAL IV STA (23:07)
[2019-09-10] MEDS ORDERED: THIAMINE 500 MG in SODIUM CHLORIDE 0.9% 50 ML IV STA (23:07)
[2019-09-10] MEDS ORDERED: VANCOMYCIN PHARMACY TO DOSE IV STA (23:19)
[2019-09-10] MEDS ORDERED: NORepinephrine/NS 4 MG-250 ML 4 MG/250 ML BAG IV ONE (23:20)
--- NOTE | 2019-09-10 23:23 | History and Physical Report ---
History of Present Illness Date of examination: 09/10/19 Date of admission: 09/10/19 21:21 Chief complaint: Altered mental status History of present illness: 74-year-old male with PMH of Dementia, PZ disease, GERD, LE contractures, [place] resident presents to the emergency department via EMS from [facility] with the complaint of seizure-like activity and altered mental status. The patient was also found to have a fever of 102.F with hypotension of SBP of 70s. No further history can be obtained from the patient due to advanced Dementia and PZ. PEr Medical records, patient is usually rather more verbal than this. He has been non verbal at the [place]. IN the ED, pt was given some IV fluid, a central line was inserted by the ED physician and pressors initiated. A/B FLu test are negative. He has a past medical history of hypothyroidism, quadriplegia, odj-ztalclh-dodsbglnk diabetes, GERD, hyperlipidemia, Parkinson's disease, schizophrenia. The patient is a poor historian. REportedly, the patient recently had his Cole catheter changed out. . PUI?: No Past History Past Medical History: diabetes, GERD, hypertension, other (Dementia, PZ) Social history: full code. denies: smoking, alcohol abuse, prescription drug abuse, IV drug use Family history: diabetes Medications and Allergies Allergies Allergy/AdvReac Type Severity Reaction Status Date / Time Unable to Assess Allergy Unverified 09/10/19 16:22 Home Medications Medication Instructions Recorded Confirmed Last Taken Type Acetaminophen [Acetaminophen ORAL 160 mg PO Q4HR PRN 09/10/19 09/10/19 Unknown History LIQ] Aspirin [Aspirin BABY CHEW TAB] 81 mg PO QDAY 09/10/19 09/10/19 Unknown History Baclofen [Ozobax] 5 mg PO BID 09/10/19 09/10/19 Unknown History Brimonidine Tartrate [Brimonidine 1 drop OU Q8HR 09/10/19 09/10/19 Unknown History Tartrate 0.2%] Cholecalciferol (Vitamin D3) 1,000 unit PO QDAY 09/10/19 09/10/19 Unknown History [Vitamin D3 500U/5ML] Docusate Sodium [Colace ORAL LIQ] 100 mg FEEDTUBE QDAY 09/10/19 09/10/19 Unknown History Emollient Combination No.112 454 gm TP Q6HR 09/10/19 09/10/19 Unknown History [Emollient Cream] Gabapentin [Neurontin] 300 mg PO Q8HR 09/10/19 09/10/19 Unknown History Insulin Glargine,Hum.rec.anlog 28 unit SQ QAM 09/10/19 09/10/19 Unknown History [Basaglar Kwikpen U-100] Latanoprost 0.005% [Xalatan 0.005%] 1 drop OP QPM 09/10/19 09/10/19 Unknown History Levothyroxine [Synthroid] 100 mcg PO QAM 09/10/19 09/10/19 Unknown History Lidocaine 5 gm TP Q12HR 09/10/19 09/10/19 Unknown History Lispro Insulin [HumaLOG] 0 unit SQ ACHS 09/10/19 09/10/19 Unknown History Magnesium Hydroxide [Milk of 30 mg PO QDAY 09/10/19 09/10/19 Unknown History Magnesia] Melatonin 3 mg PO QHS 09/10/19 09/10/19 Unknown History Metoprolol [Lopressor] 12.5 mg PO BID 09/10/19 09/10/19 Unknown History Multivitamin [Multiple Vitamins] 1 each PO QDAY 09/10/19 09/10/19 Unknown History Nutritional Supplement/Fiber 30 ml PO QDAY 09/10/19 09/10/19 Unknown History [Promote with Fiber Liquid] Quetiapine Fumarate [SEROquel XR] 50 mg PO QHS 09/10/19 09/10/19 Unknown History Sennosides [Senna] 8.6 mg PO QDAY 09/10/19 09/10/19 Unknown History metroNIDAZOLE [metroNIDAZOLE GEL 55 gm TP QDAY 09/10/19 09/10/19 Unknown History 1% TOPICAL] traMADoL [Ultram] 50 mg PO Q8HR 09/10/19 09/10/19 Unknown History Active Meds: Active Medications Acetaminophen (Tylenol) 650 mg PO Q6H PRN PRN Reason: Pain MILD(1-3)/Fever >100.5/VAZQUEZ Acetaminophen (Tylenol) 650 mg PA Q6H PRN PRN Reason: Pain MILD(1-3)/Fever >100.5/VAZQUEZ Albuterol/Ipratropium (Duoneb *Not For Prn Use*) 1 ampul IH Q6HRT [facility] Stop: 09/12/19 01:59 Famotidine (Pepcid) 20 mg IV BID LETY Hydrocortisone Sodium Succinate (Solu-Cortef) 100 mg IV Q8HR STA Stop: 09/10/19 23:08 Norepinephrine (Levophed Drip 4 Mg/Ns 250 Ml) 4 mg in 250 mls @ 7.5 mls/hr IV TITR LETY; Protocol Last Admin: 09/10/19 19:45 Dose: 30 mcg/min, 112.5 mls/hr Documented by: Lactated Ringer's (Lactated Ringers) 1,000 mls @ 125 mls/hr IV DIRECT LETY Stop: 09/12/19 07:44 Thiamine HCl 500 mg/ Sodium (Chloride) 55 mls @ 100 mls/hr IV BID STA Stop: 09/10/19 23:39 Cefepime HCl (Cefepime/Ns 1 Gm/100 Ml) 1 gm in 100 mls @ 200 mls/hr IV Q8HR [facility]; Protocol Naloxone HCl (Naloxone) 0.1 mg IV Q2MIN PRN PRN Reason: Res Rate </= 8 or 02 SAT < 92% Sodium Chloride (Sodium Chloride Flush Syringe 10 Ml) 10 ml IV BID [facility] Sodium Chloride (Sodium Chloride Flush Syringe 10 Ml) 10 ml IV PRN PRN PRN Reason: LINE FLUSH Review of Systems ROS unobtainable: due to mental status Exam - Constitutional Vitals: Temp Pulse Resp BP Pulse Ox 99.6 F 103 H 18 116/65 98 09/10/19 21:21 09/10/19 22:30 09/10/19 22:30 09/10/19 22:30 09/10/19 22:30 General appearance: Present: mild distress, cachectic - EENT Eyes: Present: PERRL ENT: hearing intact, clear oral mucosa - Neck Neck: Present: supple, normal ROM - Respiratory Respiratory: bilateral: diminished, rhonchi - Cardiovascular Heart Sounds: Present: S1 & S2. Absent: rub, click - Extremities Extremities: pulses symmetrical, No edema, abnormal Extremity abnormal: deformity, other - Abdominal General gastrointestinal: Present: soft, non-tender, non-distended, normal bowel sounds - Integumentary Integumentary: Present: clear, warm, dry - Musculoskeletal Musculoskeletal: gait normal, strength equal bilaterally - Psychiatric Psychiatric: appropriate mood/affect, intact judgment & insight - Neurologic Neurologic: CNII-XII intact Results - Labs CBC & Chem 7: 09/10/19 16:20 09/10/19 16:20 Labs: Laboratory Last Values WBC 23.3 K/mm3 (4.5-11.0) H 09/10/19 16:20 RBC 3.37 M/mm3 (3.65-5.03) L 09/10/19 16:20 Hgb 9.5 gm/dl (11.8-15.2) L 09/10/19 16:20 Hct 30.5 % (35.5-45.6) L 09/10/19 16:20 MCV 90 fl (84-94) 09/10/19 16:20 MCH 28 pg (28-32) 09/10/19 16:20 MCHC 31 % (32-34) L 09/10/19 16:20 RDW 18.6 % (13.2-15.2) H 09/10/19 16:20 Plt Count 294 K/mm3 (140-440) 09/10/19 16:20 Add Manual Diff Complete 09/10/19 16:20 Total Counted 100 09/10/19 16:20 Seg Neutrophils % Inpatient Auditor 09/10/19 16:20 Seg Neuts % (Manual) 75.0 % (40.0-70.0) H 09/10/19 16:20 Band Neutrophils % 21.0 % 09/10/19 16:20 Lymphocytes % (Manual) 2.0 % (13.4-35.0) L 09/10/19 16:20 Reactive Lymphs % (Man) 0 % 09/10/19 16:20 Monocytes % (Manual) 0 % (0.0-7.3) 09/10/19 16:20 Eosinophils % (Manual) 0 % (0.0-4.3) 09/10/19 16:20 Basophils % (Manual) 0 % (0.0-1.8) 09/10/19 16:20 Metamyelocytes % 2.0 % 09/10/19 16:20 Myelocytes % 0 % 09/10/19 16:20 Promyelocytes % 0 % 09/10/19 16:20 Blast Cells % 0 % 09/10/19 16:20 Nucleated RBC % Not Reportable 09/10/19 16:20 Seg Neutrophils # Man 17.5 K/mm3 (1.8-7.7) H 09/10/19 16:20 Band Neutrophils # 4.9 K/mm3 09/10/19 16:20 Lymphocytes # (Manual) 0.5 K/mm3 (1.2-5.4) L 09/10/19 16:20 Abs React Lymphs (Man) 0.0 K/mm3 09/10/19 16:20 Monocytes # (Manual) 0.0 K/mm3 (0.0-0.8) 09/10/19 16:20 Eosinophils # (Manual) 0.0 K/mm3 (0.0-0.4) 09/10/19 16:20 Basophils # (Manual) 0.0 K/mm3 (0.0-0.1) 09/10/19 16:20 Metamyelocytes # 0.5 K/mm3 09/10/19 16:20 Myelocytes # 0.0 K/mm3 09/10/19 16:20 Promyelocytes # 0.0 K/mm3 09/10/19 16:20 Blast Cells # 0.0 K/mm3 09/10/19 16:20 WBC Morphology Not Reportable 09/10/19 16:20 Hypersegmented Neuts Not Reportable 09/10/19 16:20 Hyposegmented Neuts Not Reportable 09/10/19 16:20 Hypogranular Neuts Not Reportable 09/10/19 16:20 Smudge Cells Not Reportable 09/10/19 16:20 Toxic Granulation Not Reportable 09/10/19 16:20 Toxic Vacuolation Not Reportable 09/10/19 16:20 Dohle Bodies Not Reportable 09/10/19 16:20 Pelger-Huet Anomaly Not Reportable 09/10/19 16:20 Deny Rods Not Reportable 09/10/19 16:20 Platelet Estimate Consistent w auto 09/10/19 16:20 Clumped Platelets Not Reportable 09/10/19 16:20 Plt Clumps, EDTA Not Reportable 09/10/19 16:20 Large Platelets 1+ 09/10/19 16:20 Giant Platelets Not Reportable 09/10/19 16:20 Platelet Satelliting Not Reportable 09/10/19 16:20 Plt Morphology Comment Not Reportable 09/10/19 16:20 RBC Morphology Not Reportable 09/10/19 16:20 Dimorphic RBCs Not Reportable 09/10/19 16:20 Polychromasia Not Reportable 09/10/19 16:20 Hypochromasia Not Reportable 09/10/19 16:20 Poikilocytosis Not Reportable 09/10/19 16:20 Anisocytosis Few 09/10/19 16:20 Microcytosis Not Reportable 09/10/19 16:20 Macrocytosis Not Reportable 09/10/19 16:20 Spherocytes Not Reportable 09/10/19 16:20 Pappenheimer Bodies Not Reportable 09/10/19 16:20 Sickle Cells Not Reportable 09/10/19 16:20 Target Cells Not Reportable 09/10/19 16:20 Tear Drop Cells Not Reportable 09/10/19 16:20 Ovalocytes Not Reportable 09/10/19 16:20 Helmet Cells Not Reportable 09/10/19 16:20 Leonardo[place] Bodies Not Reportable 09/10/19 16:20 Keiser Rings Not Reportable 09/10/19 16:20 Norton Cells Not Reportable 09/10/19 16:20 Bite Cells Not Reportable 09/10/19 16:20 Crenated Cell Not Reportable 09/10/19 16:20 Elliptocytes Not Reportable 09/10/19 16:20 Acanthocytes (Spur) Not Reportable 09/10/19 16:20 Rouleaux Not Reportable 09/10/19 16:20 Hemoglobin C Crystals Not Reportable 09/10/19 16:20 Schistocytes Not Reportable 09/10/19 16:20 Malaria parasites Not Reportable 09/10/19 16:20 Gonsalo Bodies Not Reportable 09/10/19 16:20 Hem Pathologist Commnt No 09/10/19 16:20 VBG pH 7.160 (7.320-7.420) L* 09/10/19 18:15 Sodium 143 mmol/L (137-145) 09/10/19 16:20 Potassium 4.2 mmol/L (3.6-5.0) 09/10/19 16:20 Chloride 107.2 mmol/L (98-107) H 09/10/19 16:20 Carbon Dioxide 20 mmol/L (22-30) L 09/10/19 16:20 Anion Gap 20 mmol/L 09/10/19 16:20 BUN 75 mg/dL (9-20) H 09/10/19 16:20 Creatinine 3.6 mg/dL (0.8-1.5) H 09/10/19 16:20 Estimated GFR 17 ml/min 09/10/19 16:20 BUN/Creatinine Ratio 21 % 09/10/19 16:20 Glucose 281 mg/dL (75-100) H 09/10/19 16:20 POC Glucose 287 (70-105) H 09/10/19 16:23 Lactic Acid 6.10 mmol/L (0.7-2.0) H* 09/10/19 18:15 Calcium 8.8 mg/dL (8.4-10.2) 09/10/19 16:20 Ferritin 204.6 ng/mL (13.0-400.0) 09/10/19 16:20 Total Bilirubin 0.20 mg/dL (0.1-1.2) 09/10/19 16:20 AST 45 units/L (5-40) H 09/10/19 16:20 ALT 22 units/L (7-56) 09/10/19 16:20 Alkaline Phosphatase 114 units/L (35-129) 09/10/19 16:20 Lactate Dehydrogenase 308 units/L (91-180) H 09/10/19 16:32 Troponin T 0.238 ng/mL (0.00-0.029) H* 09/10/19 16:20 C-Reactive Protein 16.50 mg/dL (0.00-1.30) H 09/10/19 16:32 Total Protein 5.7 g/dL (6.3-8.2) L 09/10/19 16:20 Albumin 2.8 g/dL (3.9-5) L 09/10/19 16:20 Albumin/Globulin Ratio 1.0 % 09/10/19 16:20 Triglycerides 89 mg/dL (2-149) 09/10/19 16:20 Cholesterol 101 mg/dL (50-199) 09/10/19 16:20 LDL Cholesterol Direct 61 mg/dL (50-130) 09/10/19 16:20 HDL Cholesterol 31 mg/dL (40-59) L 09/10/19 16:20 Cholesterol/HDL Ratio 3.25 % 09/10/19 16:20 TSH 2.520 mlU/mL (0.270-4.200) 09/10/19 16:20 Urine Color Red (Yellow) 09/10/19 Unknown Urine Turbidity Cloudy (Clear) 09/10/19 Unknown Urine pH 7.0 (5.0-7.0) 09/10/19 Unknown Ur Specific [place] 1.014 (1.003-1.030) 09/10/19 Unknown Urine Protein >500 mg/dL (Negative) 09/10/19 Unknown Urine Glucose (UA) Neg mg/dL (Negative) 09/10/19 Unknown Urine Ketones Neg mg/dL (Negative) 09/10/19 Unknown Urine Blood Mod (Negative) 09/10/19 Unknown Urine Nitrite Neg (Negative) 09/10/19 Unknown Urine Bilirubin Neg (Negative) 09/10/19 Unknown Urine Urobilinogen < 2.0 mg/dL (<2.0) 09/10/19 Unknown Ur Leukocyte Esterase Mod (Negative) 09/10/19 Unknown Urine WBC (Auto) 80.0 /HPF (0.0-6.0) H 09/10/19 Unknown Urine RBC (Auto) > 182.0 /HPF (0.0-6.0) 09/10/19 Unknown U Epithel Cells (Auto) < 1.0 /HPF (0-13.0) 09/10/19 Unknown Urine Bacteria (Auto) 1+ /HPF (Negative) 09/10/19 Unknown Influenza A (Rapid) Negative (Negative) 09/10/19 Unknown Influenza B (Rapid) Negative (Negative) 09/10/19 Unknown Microbiology: Microbiology 09/10/19 Unknown Peripheral/Venous Blood Culture - Preliminary Culture in Progress 09/10/19 Unknown Peripheral/Venous Blood Culture - Preliminary Culture in Progress Cole/IV: IV Catheter Type [Left INT / Saline Lock Antecubital] Assessment and Plan Assessment and plan: Severe Sepsis - Etiology is sought but UTI is most likely given fever, AMS, Pyuria and mild bacteriuria . CT of abd/pelvis also suggestive of renal disease - albeit Bacterial meningitis is also plausible given [place] residence. CXR is unrevealing. COVid is unlikely at this time - FLu is negative - continue pressors, IVF with pressors. will give LR bolus and continue maintenance iVF. - IV hydrocortisone,IV thiamine. IV Vitamin C not available at this facility. ROXANNE - Due to acute illness - NO obstrutive uropathy on CT abd/pelvis -IVF. Avoid nephrotoxins Anemia -stable - MOnitor Troponemia - in the setting of poor renal function - monitor pt for any signs of cardiac decompensation Dementia/PZ/GERD/DM - chronic conditions - continue meds Febrile illness - Fever of 102.& - see above FULL code
[2019-09-10] MEDS ORDERED: CEFEPIME/NS 1 GM/100 ML 1 GM/100 ML BAG IV ONE (23:41)
[2019-09-10] MEDS ORDERED: FAMOTIDINE 20 MG/2 ML INJ IV ONE (23:42)
[2019-09-10] MEDS ORDERED: HYDROCORTISONE SOD SUCC 100 MG/2 ML VIAL ONE (23:42)
[2019-09-10] MEDS ORDERED: VANCOMYCIN 1,250 MG in SODIUM CHLORIDE 0.9% 250ML 250 ML IV ONE (23:45)
[2019-09-10] MEDS ORDERED: FAMOTIDINE 20 MG/2 ML INJ IV SCH (23:45)
[2019-09-10] MEDS ORDERED: CEFEPIME/NS 1 GM/100 ML 1 GM/100 ML BAG IV SCH (23:45)
[2019-09-11] MEDS ORDERED: LACTATED RINGERS 1,000 ML ONE ×2 (00:06→06:57)
[2019-09-11] MEDS: LACTATED RINGERS 1,000 ML IV SCH ×2 (00:07→09:00)
[2019-09-11] MEDS: IPRATROPIUM/ALBUTEROL SULFATE 3 ML AMPUL.NEB IH SCH ×3 (04:15→20:49)
[2019-09-11 04:20] LABS: Hematocrit 29.7 % (35.5-45.6); Hemoglobin 9.7 gm/dl (11.8-15.2); Mean Corpuscular HGB Conc 33 % (32-34); Mean Corpuscular Volume 88 fl (84-94); Platelet Count 222 K/mm3 (140-440); Red Blood Count 3.36 M/mm3 (3.65-5.03); Red Cell Distribution Width 18.6 % (13.2-15.2)
[2019-09-11 04:42] LABS: Albumin 2.5 g/dL (3.9-5)
[2019-09-11 05:20] LABS: Anisocytosis 1+; Band Neutrophils # (Manual) 2.3 K/mm3; Basophils % (Manual) 0 % (0.0-1.8); Eosinophils % (Manual) 0 % (0.0-4.3); Monocytes % (Manual) 0 % (0.0-7.3); Platelet Estimate Consistent w Auto; Total Cells Counted 200
[2019-09-11] MEDS ORDERED: VANCOMYCIN PHARMACY TO DOSE IV SCH (10:00)
[2019-09-11] MEDS ORDERED: FAMOTIDINE 20 MG/2 ML INJ IV SCH (10:00)
[2019-09-11] MEDS ORDERED: HEPARIN 5,000 UNIT/1 ML VIAL ONE (11:54)
[2019-09-11] MEDS ORDERED: CEFEPIME/NS 1 GM/100 ML 1 GM/100 ML BAG IV ONE (11:54)
[2019-09-11] MEDS ORDERED: FAMOTIDINE 20 MG/2 ML INJ IV ONE (11:54)
[2019-09-11] MEDS: HEPARIN 5,000 UNIT/1 ML VIAL SUB-Q SCH ×2 (12:03→21:31)
[2019-09-11] MEDS: CEFEPIME/NS 1 GM/100 ML 1 GM/100 ML BAG IV SCH (12:04)
--- NOTE | 2019-09-11 16:37 | Progress Note ---
Assessment and Plan Assessment and plan: --Severe Sepsis; Probably secondary to UTI, empiric antibiotics, follow cultures Supportive care --ROXANNE; vasomotor nephropathy IV fluids, avoid nephrotoxins, monitor renal function --Anemia Secondary to kidney disease Monitor H&H transfuse as needed --Non-ST elevation HI[probably type II] Secondary to acute kidney injury Monitor closely, cardiology consult if needed --Dementia; Continue current home medications --Type 2 diabetes mellitus; Accu-Chek sliding scale coverage ADA diet insulin as needed --Febrile illness Fever of 102.& Secondary to sepsis, follow cultures Empiric antibiotics --FULL code status Monitor closely and adjust management as needed Plan of care reviewed with the patient's nurse History Interval history: Patient seen and examined in ER awaiting bed assignment Patient's chart medications tests reviewed Patient is admitted with acute sepsis and altered level of consciousness Patient is chronically ill looking and noncommunicative Vital signs noted PUI?: No Hospitalist Physical - Constitutional Vitals: Temp Pulse Resp BP Pulse Ox 98.0 F 81 18 114/56 99 09/11/19 13:27 09/11/19 13:15 09/11/19 13:15 09/11/19 13:15 09/11/19 13:15 General appearance: Present: mild distress, cachectic - EENT Eyes: Present: PERRL, EOM intact - Neck Neck: Present: supple, normal ROM - Respiratory Respiratory effort: normal Respiratory: bilateral: diminished, rhonchi, negative: rales, wheezing - Cardiovascular Rhythm: regular Heart Sounds: Present: S1 & S2 - Extremities Extremities: no ischemia, No edema, abnormal (Contracted) - Abdominal General gastrointestinal: soft, non-tender, non-distended - Integumentary Integumentary: Present: clear, warm - Psychiatric Psychiatric: other (Noncommunicative) - Neurologic Neurologic: other (Contracted noncommunicative) Results - Labs CBC & Chem 7: 09/11/19 Unknown 09/11/19 04:00 Labs: Laboratory Last Values WBC 29.3 K/mm3 (4.5-11.0) H 09/11/19 Unknown RBC 3.36 M/mm3 (3.65-5.03) L 09/11/19 Unknown Hgb 9.7 gm/dl (11.8-15.2) L 09/11/19 Unknown Hct 29.7 % (35.5-45.6) L 09/11/19 Unknown MCV 88 fl (84-94) 09/11/19 Unknown MCH 29 pg (28-32) 09/11/19 Unknown MCHC 33 % (32-34) 09/11/19 Unknown RDW 18.6 % (13.2-15.2) H 09/11/19 Unknown Plt Count 222 K/mm3 (140-440) 09/11/19 Unknown Add Manual Diff Complete 09/11/19 Unknown Total Counted 200 09/11/19 Unknown Seg Neutrophils % Customer Solutions Supervisor 09/11/19 Unknown Seg Neuts % (Manual) 87.5 % (40.0-70.0) H 09/11/19 Unknown Band Neutrophils % 8.0 % 09/11/19 Unknown Lymphocytes % (Manual) 4.5 % (13.4-35.0) L 09/11/19 Unknown Reactive Lymphs % (Man) 0 % 09/11/19 Unknown Monocytes % (Manual) 0 % (0.0-7.3) 09/11/19 Unknown Eosinophils % (Manual) 0 % (0.0-4.3) 09/11/19 Unknown Basophils % (Manual) 0 % (0.0-1.8) 09/11/19 Unknown Metamyelocytes % 0 % 09/11/19 Unknown Myelocytes % 0 % 09/11/19 Unknown Promyelocytes % 0 % 09/11/19 Unknown Blast Cells % 0 % 09/11/19 Unknown Nucleated RBC % Not Reportable 09/11/19 Unknown Seg Neutrophils # Man 25.6 K/mm3 (1.8-7.7) H 09/11/19 Unknown Band Neutrophils # 2.3 K/mm3 09/11/19 Unknown Lymphocytes # (Manual) 1.3 K/mm3 (1.2-5.4) 09/11/19 Unknown Abs React Lymphs (Man) 0.0 K/mm3 09/11/19 Unknown Monocytes # (Manual) 0.0 K/mm3 (0.0-0.8) 09/11/19 Unknown Eosinophils # (Manual) 0.0 K/mm3 (0.0-0.4) 09/11/19 Unknown Basophils # (Manual) 0.0 K/mm3 (0.0-0.1) 09/11/19 Unknown Metamyelocytes # 0.0 K/mm3 09/11/19 Unknown Myelocytes # 0.0 K/mm3 09/11/19 Unknown Promyelocytes # 0.0 K/mm3 09/11/19 Unknown Blast Cells # 0.0 K/mm3 09/11/19 Unknown WBC Morphology Not Reportable 09/11/19 Unknown Hypersegmented Neuts Not Reportable 09/11/19 Unknown Hyposegmented Neuts Not Reportable 09/11/19 Unknown Hypogranular Neuts Not Reportable 09/11/19 Unknown Smudge Cells Not Reportable 09/11/19 Unknown Toxic Granulation Not Reportable 09/11/19 Unknown Toxic Vacuolation Not Reportable 09/11/19 Unknown Dohle Bodies Not Reportable 09/11/19 Unknown Pelger-Huet Anomaly Not Reportable 09/11/19 Unknown Deny Rods Not Reportable 09/11/19 Unknown Platelet Estimate Consistent w auto 09/11/19 Unknown Clumped Platelets Not Reportable 09/11/19 Unknown Plt Clumps, EDTA Not Reportable 09/11/19 Unknown Large Platelets Not Reportable 09/11/19 Unknown Giant Platelets Not Reportable 09/11/19 Unknown Platelet Satelliting Not Reportable 09/11/19 Unknown Plt Morphology Comment Not Reportable 09/11/19 Unknown RBC Morphology Not Reportable 09/11/19 Unknown Dimorphic RBCs Not Reportable 09/11/19 Unknown Polychromasia Not Reportable 09/11/19 Unknown Hypochromasia Not Reportable 09/11/19 Unknown Poikilocytosis Not Reportable 09/11/19 Unknown Anisocytosis 1+ 09/11/19 Unknown Microcytosis Not Reportable 09/11/19 Unknown Macrocytosis Not Reportable 09/11/19 Unknown Spherocytes Not Reportable 09/11/19 Unknown Pappenheimer Bodies Not Reportable 09/11/19 Unknown Sickle Cells Not Reportable 09/11/19 Unknown Target Cells Not Reportable 09/11/19 Unknown Tear Drop Cells Not Reportable 09/11/19 Unknown Ovalocytes Not Reportable 09/11/19 Unknown Helmet Cells Not Reportable 09/11/19 Unknown [place] Bodies Not Reportable 09/11/19 Unknown Selmer Rings Not Reportable 09/11/19 Unknown Marlo Cells Not Reportable 09/11/19 Unknown Bite Cells Not Reportable 09/11/19 Unknown Crenated Cell Not Reportable 09/11/19 Unknown Elliptocytes Not Reportable 09/11/19 Unknown Acanthocytes (Spur) Not Reportable 09/11/19 Unknown Rouleaux Not Reportable 09/11/19 Unknown Hemoglobin C Crystals Not Reportable 09/11/19 Unknown Schistocytes Not Reportable 09/11/19 Unknown Malaria parasites Not Reportable 09/11/19 Unknown Gonsalo Bodies Not Reportable 09/11/19 Unknown Hem Pathologist Commnt No 09/11/19 Unknown VBG pH 7.160 (7.320-7.420) L* 09/10/19 18:15 Sodium 144 mmol/L (137-145) 09/11/19 04:00 Potassium 4.3 mmol/L (3.6-5.0) 09/11/19 04:00 Chloride 114.5 mmol/L (98-107) H 09/11/19 04:00 Carbon Dioxide 18 mmol/L (22-30) L 09/11/19 04:00 Anion Gap 16 mmol/L 09/11/19 04:00 BUN 62 mg/dL (9-20) H 09/11/19 04:00 Creatinine 1.9 mg/dL (0.8-1.5) H 09/11/19 04:00 Estimated GFR 35 ml/min 09/11/19 04:00 BUN/Creatinine Ratio 33 % 09/11/19 04:00 Glucose 244 mg/dL (75-100) H 09/11/19 04:00 POC Glucose 213 (70-105) H 09/11/19 13:22 Lactic Acid 1.30 mmol/L (0.7-2.0) 09/11/19 Unknown Calcium 8.0 mg/dL (8.4-10.2) L 09/11/19 04:00 Ferritin 204.6 ng/mL (13.0-400.0) 09/10/19 16:20 Total Bilirubin 0.20 mg/dL (0.1-1.2) 09/11/19 04:00 AST 22 units/L (5-40) 09/11/19 04:00 ALT 15 units/L (7-56) 09/11/19 04:00 Alkaline Phosphatase 86 units/L (35-129) 09/11/19 04:00 Lactate Dehydrogenase 308 units/L (91-180) H 09/10/19 16:32 Troponin T 0.238 ng/mL (0.00-0.029) H* 09/10/19 16:20 C-Reactive Protein 16.50 mg/dL (0.00-1.30) H 09/10/19 16:32 Total Protein 5.9 g/dL (6.3-8.2) L 09/11/19 04:00 Albumin 2.5 g/dL (3.9-5) L 09/11/19 04:00 Albumin/Globulin Ratio 0.7 % 09/11/19 04:00 Triglycerides 89 mg/dL (2-149) 09/10/19 16:20 Cholesterol 101 mg/dL (50-199) 09/10/19 16:20 LDL Cholesterol Direct 61 mg/dL (50-130) 09/10/19 16:20 HDL Cholesterol 31 mg/dL (40-59) L 09/10/19 16:20 Cholesterol/HDL Ratio 3.25 % 09/10/19 16:20 Procalcitonin 160.37 ng/mL (<0.15) 09/10/19 16:20 TSH 2.520 mlU/mL (0.270-4.200) 09/10/19 16:20 Urine Color Red (Yellow) 09/10/19 Unknown Urine Turbidity Cloudy (Clear) 09/10/19 Unknown Urine pH 7.0 (5.0-7.0) 09/10/19 Unknown Ur Specific [place] 1.014 (1.003-1.030) 09/10/19 Unknown Urine Protein >500 mg/dL (Negative) 09/10/19 Unknown Urine Glucose (UA) Neg mg/dL (Negative) 09/10/19 Unknown Urine Ketones Neg mg/dL (Negative) 09/10/19 Unknown Urine Blood Mod (Negative) 09/10/19 Unknown Urine Nitrite Neg (Negative) 09/10/19 Unknown Urine Bilirubin Neg (Negative) 09/10/19 Unknown Urine Urobilinogen < 2.0 mg/dL (<2.0) 09/10/19 Unknown Ur Leukocyte Esterase Mod (Negative) 09/10/19 Unknown Urine WBC (Auto) 80.0 /HPF (0.0-6.0) H 09/10/19 Unknown Urine RBC (Auto) > 182.0 /HPF (0.0-6.0) 09/10/19 Unknown U Epithel Cells (Auto) < 1.0 /HPF (0-13.0) 09/10/19 Unknown Urine Bacteria (Auto) 1+ /HPF (Negative) 09/10/19 Unknown Influenza A (Rapid) Negative (Negative) 09/10/19 Unknown Influenza B (Rapid) Negative (Negative) 09/10/19 Unknown Microbiology: Microbiology 09/10/19 Unknown Peripheral/Venous Blood Culture - Preliminary 09/10/19 Unknown Peripheral/Venous Blood Culture - Preliminary Cole/IV: IV Catheter Type [Left INT / Saline Lock Antecubital] Active Medications - Current Medications Current Medications: Generic Name Dose Route Start Last Admin Trade Name Freq PRN Reason Stop Dose Admin Acetaminophen 650 mg 09/10/19 23:07 Tylenol PO Q6H PRN Pain MILD(1-3)/Fever >100.5/VAZQUEZ Acetaminophen 650 mg 09/10/19 23:07 Tylenol SD Q6H PRN Pain MILD(1-3)/Fever >100.5/VAZQUEZ Albuterol/Ipratropium 1 ampul 09/11/19 02:00 09/11/19 16:15 Duoneb *Not For Prn Use* IH 09/12/19 01:59 Not Given Q6HRT LETY Famotidine 20 mg 09/11/19 10:00 09/11/19 12:04 Pepcid IV 20 mg DAILY LETY Administration Heparin Sodium (Porcine) 5,000 unit 09/11/19 10:00 09/11/19 12:03 Heparin SUB-Q 5,000 unit Q12HR LETY Administration Norepinephrine 4 mg in 250 mls @ 7.5 mls/hr 09/10/19 20:00 09/11/19 09:03 Levophed Drip 4 Mg/Ns 250 Ml IV 0 mcg/min TITR LETY 0 mls/hr Titration Protocol 2 MCG/MIN Lactated Ringer's 1,000 mls @ 125 mls/hr 09/10/19 23:45 09/11/19 09:00 Lactated Ringers IV 09/12/19 07:44 125 mls/hr DIRECT LETY Administration Cefepime HCl 1 gm in 100 mls @ 200 mls/hr 09/11/19 12:00 09/11/19 12:04 Cefepime/Ns 1 Gm/100 Ml IV 200 mls/hr Q12H LETY Administration Protocol Vancomycin HCl 1 gm in 250 mls @ 167.007 mls/hr 09/11/19 22:00 Vancomycin/Ns 1 Gm/250 Ml IV Q24H LETY Naloxone HCl 0.1 mg 09/10/19 23:07 Naloxone IV Q2MIN PRN Res Rate </= 8 or 02 SAT < 92% Pneumococcal Polyvalent Vaccine 0.5 ml 09/12/19 12:00 Pneumovax 23 IM 09/12/19 12:01 .ONCE ONE Sodium Chloride 10 ml 09/11/19 10:00 09/11/19 12:04 Sodium Chloride Flush Syringe 10 Ml IV 10 ml BID LETY Administration Sodium Chloride 10 ml 09/10/19 23:07 Sodium Chloride Flush Syringe 10 Ml IV PRN PRN LINE FLUSH Nutrition/Malnutrition Assess - Dietary Evaluation Nutrition/Malnutrition Findings: Nutrition Notes Start: 09/11/19 09:00 Freq: Status: Active Protocol: Document 09/11/19 09:00 LM (Rec: 09/11/19 09:07 LM [id number]) Nutrition Notes Need for Assessment generated from: MD Order,Education Initial or Follow up Brief Note Current Diagnosis Acute Kidney Injury,Diabetes, Sepsis,Hyperlipidemia Other Pertinent Diagnosis Parkinsons disease, fever, R foot, L hip, and sacral wounds Current Diet NPO Labs/Tests BG 244 Pertinent Medications Levophed Height 5 ft 6 in Weight 66.6 kg [place] Body Weight (kg) 64.54 BMI 23.7 Weight Status Appropriate Subjective/Other Information MD consult for diet education. Pt in ED. Pt with wounds. Burn Absent Trauma Absent Current % PO Negligible #1 Nutrition Diagnosis Increased nutrient needs ( specify in comment below) Comments: protein Etiology Wound healing As Evidenced by Signs and Symptoms Pt with R foot, L hip, and sacral wounds Is patient on ventilator? No Is Patient Ambulatory and/or Out of Bed No REE-([facility]-confined to bed) 0214.810 Calculation Used for Recommendations [facility] Additional Notes Protein: 53-100g (0.8-1.5g/kg) ROXANNE and wound needs Fluid: 1 ml/kcal Nutrition Intervention Change Diet Order: diet advancement when medically feasible Goal #1 diet advancement Anticipated Discharge Needs: consistent CHO Follow-Up By: 04/16/20 Additional Comments F/U for full assessment, diet ed, diet advancement
[2019-09-11] MEDS ORDERED: SODIUM BICARBONATE 325 MG TAB FEEDTUBE PRN (19:04)
[2019-09-11] MEDS ORDERED: LIPASE 10,500/PROTEASE 25,000/AMYLASE 43,750 (UNITS) DR CAP FEEDTUBE PRN (19:04)
[2019-09-11] MEDS ORDERED: SIMPLE SYRUP 15 ML FEEDTUBE PRN ×2 (19:04)
[2019-09-11] MEDS: VANCOMYCIN/NS 1 GM/250 ML 1 GM/250 ML BAG IV SCH (21:33)
[2019-09-12] MEDS: INSULIN LISPRO 100 UNIT/ML SUB-Q SCH ×4 (00:58→17:21)
[2019-09-12] MEDS: CEFEPIME/NS 1 GM/100 ML 1 GM/100 ML BAG IV SCH ×2 (02:16→14:08)
[2019-09-12 06:10] LABS: Hematocrit 30.3 % (35.5-45.6); Hemoglobin 9.7 gm/dl (11.8-15.2); Mean Corpuscular HGB Conc 32 % (32-34); Mean Corpuscular Volume 89 fl (84-94); Platelet Count 165 K/mm3 (140-440); Red Blood Count 3.43 M/mm3 (3.65-5.03)
[2019-09-12 06:32] LABS: BUN/Creatinine Ratio 39; Blood Urea Nitrogen 39 mg/dL (9-20); Calcium 8.9 mg/dL (8.4-10.2); Hemolysis Index 2
[2019-09-12 08:59] LABS: Anisocytosis 1+; Basophils % (Manual) 0 % (0.0-1.8); Platelet Estimate Consistent w Auto; Total Cells Counted 100
[2019-09-12] MEDS: HEPARIN 5,000 UNIT/1 ML VIAL SUB-Q SCH ×2 (09:29→22:41)
[2019-09-12] MEDS: FAMOTIDINE 20 MG/2 ML INJ IV SCH ×2 (09:29→22:41)
--- NOTE | 2019-09-12 11:07 | Consultation ---
History of Present Illness - Reason for Consult Consult date: 09/12/19 acute renal failure - History of Present Illness This is a 74 year old male who is admitted to the hospital for altered mental status, possible seizure and he was found to be febrile and Hypotensive on admission. Patient came from [facility]. Labs on admission revealed an elevated serum creatinine of 3.6 which trended down to 1.0 today. Serum creatinine on 08/13/19 was 1.0. Patient has history of Diabetes Mellitus, Parkinson's Disease, Hypothyroidism and Schizophrenia. We are being consulted for management of this patient Acute Renal Failure. Past History Past Medical History: diabetes, GERD, hypertension, other (Dementia, PZ) Social history: full code. denies: smoking, alcohol abuse, prescription drug abuse, IV drug use Family history: diabetes Medications and Allergies Allergies Allergy/AdvReac Type Severity Reaction Status Date / Time MINE Inhibitors Allergy Unknown Verified 09/11/19 11:33 atorvastatin Allergy Unknown Verified 09/11/19 11:33 erythromycin base Allergy Unknown Verified 09/11/19 11:33 felodipine Allergy Unknown Verified 09/11/19 11:33 lisinopril Allergy Unknown Verified 09/11/19 11:33 Penicillins Allergy Unknown Verified 09/11/19 11:33 simvastatin Allergy Unknown Verified 09/11/19 11:33 Home Medications Medication Instructions Recorded Confirmed Last Taken Type Acetaminophen [Acetaminophen ORAL 160 mg PO Q4HR PRN 09/10/19 09/10/19 Unknown History LIQ] Aspirin [Aspirin BABY CHEW TAB] 81 mg PO QDAY 09/10/19 09/10/19 Unknown History Baclofen [Ozobax] 5 mg PO BID 09/10/19 09/10/19 Unknown History Brimonidine Tartrate [Brimonidine 1 drop OU Q8HR 09/10/19 09/10/19 Unknown History Tartrate 0.2%] Cholecalciferol (Vitamin D3) 1,000 unit PO QDAY 09/10/19 09/10/19 Unknown History [Vitamin D3 500U/5ML] Docusate Sodium [Colace ORAL LIQ] 100 mg FEEDTUBE QDAY 09/10/19 09/10/19 Unknown History Emollient Combination No.112 454 gm TP Q6HR 09/10/19 09/10/19 Unknown History [Emollient Cream] Gabapentin [Neurontin] 300 mg PO Q8HR 09/10/19 09/10/19 Unknown History Insulin Glargine,Hum.rec.anlog 28 unit SQ QAM 09/10/19 09/10/19 Unknown History [Basaglar Kwikpen U-100] Latanoprost 0.005% [Xalatan 0.005%] 1 drop OP QPM 09/10/19 09/10/19 Unknown History Levothyroxine [Synthroid] 100 mcg PO QAM 09/10/19 09/10/19 Unknown History Lidocaine 5 gm TP Q12HR 09/10/19 09/10/19 Unknown History Lispro Insulin [HumaLOG] 0 unit SQ ACHS 09/10/19 09/10/19 Unknown History Magnesium Hydroxide [Milk of 30 mg PO QDAY 09/10/19 09/10/19 Unknown History Magnesia] Melatonin 3 mg PO QHS 09/10/19 09/10/19 Unknown History Metoprolol [Lopressor] 12.5 mg PO BID 09/10/19 09/10/19 Unknown History Multivitamin [Multiple Vitamins] 1 each PO QDAY 09/10/19 09/10/19 Unknown History Nutritional Supplement/Fiber 30 ml PO QDAY 09/10/19 09/10/19 Unknown History [Promote with Fiber Liquid] Quetiapine Fumarate [SEROquel XR] 50 mg PO QHS 09/10/19 09/10/19 Unknown History Sennosides [Senna] 8.6 mg PO QDAY 09/10/19 09/10/19 Unknown History metroNIDAZOLE [metroNIDAZOLE GEL 55 gm TP QDAY 09/10/19 09/10/19 Unknown History 1% TOPICAL] traMADoL [Ultram] 50 mg PO Q8HR 09/10/19 09/10/19 Unknown History Active Meds: Active Medications Acetaminophen (Tylenol) 650 mg PO Q6H PRN PRN Reason: Pain MILD(1-3)/Fever >100.5/VAZQUEZ Acetaminophen (Tylenol) 650 mg AL Q6H PRN PRN Reason: Pain MILD(1-3)/Fever >100.5/VAZQUEZ Last Admin: 09/11/19 21:32 Dose: 650 mg Documented by: Lipase/Protease/Amylase (Jocelynn Merida 10,500 Unit) 1 each FEEDTUBE PRN PRN PRN Reason: For Clogged Feeding Tube Famotidine (Pepcid) 20 mg IV BID [facility] Last Admin: 09/12/19 09:29 Dose: 20 mg Documented by: Heparin Sodium (Porcine) (Heparin) 5,000 unit SUB-Q Q12HR [facility] Last Admin: 09/12/19 09:29 Dose: 5,000 unit Documented by: Norepinephrine (Levophed Drip 4 Mg/Ns 250 Ml) 4 mg in 250 mls @ 7.5 mls/hr IV TITR [facility], [facility]; Protocol Last Titration: 09/11/19 09:03 Dose: 0 mcg/min, 0 mls/hr Documented by: Cefepime HCl (Cefepime/Ns 1 Gm/100 Ml) 1 gm in 100 mls @ 200 mls/hr IV Q12H [facility], [facility]; Protocol Last Admin: 09/12/19 02:16 Dose: 200 mls/hr Documented by: Vancomycin HCl (Vancomycin/Ns 1 Gm/250 Ml) 1 gm in 250 mls @ 167.007 mls/hr IV Q24H [facility] Last Admin: 09/11/19 21:33 Dose: 167.007 mls/hr Documented by: Insulin Human Lispro (Humalog) 0 unit SUB-Q Q6HR [facility]; Protocol Last Admin: 09/12/19 06:08 Dose: Not Given Documented by: Naloxone HCl (Naloxone) 0.1 mg IV Q2MIN PRN PRN Reason: Res Rate </= 8 or 02 SAT < 92% Pneumococcal Polyvalent Vaccine (Pneumovax 23) 0.5 ml IM .ONCE ONE Stop: 09/12/19 12:01 Simple Syrup (Simple Syrup) 15 ml FEEDTUBE PRN PRN PRN Reason: Hypoglycemia Simple Syrup (Simple Syrup) 30 ml FEEDTUBE PRN PRN PRN Reason: Hypoglycemia Sodium Bicarbonate (Sodium Bicarbonate) 325 mg FEEDTUBE PRN PRN PRN Reason: For Clogged Feeding Tube Sodium Chloride (Sodium Chloride Flush Syringe 10 Ml) 10 ml IV BID [facility] Last Admin: 09/12/19 09:30 Dose: 10 ml Documented by: Sodium Chloride (Sodium Chloride Flush Syringe 10 Ml) 10 ml IV PRN PRN PRN Reason: LINE FLUSH Last Admin: 09/12/19 04:16 Dose: 10 ml Documented by: Review of Systems ROS unobtainable: due to mental status Exam - Vital Signs Vital signs: Vital Signs BP 74/47 09/10/19 16:09 - General Appearance General appearance: other (Patient eyes open, non-verbal, has tremors) EENT: ATNC Neck: Present: neck supple Respiratory: Decreased Breath Sounds Heart: regular, S1S2 Gastrointestinal: Present: normoactive bowel sounds Integumentary: warm and dry Neurologic: other (Awake, non-verbal) Musculoskeletal: Present: other (trace edema) Results - Lab Results 09/12/19 05:39 09/12/19 05:39 Most recent lab results Calcium 8.9 mg/dL (8.4-10.2) 09/12/19 05:39 Magnesium 2.30 mg/dL (1.7-2.3) 09/12/19 05:39 Assessment and Plan Assessment: Acute Renal Failure likely secondary to ATN secondary to Sepsis and Hypotension Severe Sepsis UTI Dementia DM Hypernatremia Plan: -Renal labs reviewed. Serum creatinine trend down to 1.0 today, yesterday's was 1.9. Admission serum creatinine was 3.6. Baseline is 1.0. -S/P IVF -Will obtain urine lytes -Renal US-pending -CT of abd/pelvis- showed mild, symmetric bilateral ureteronephrosis- can f/u with Urology outpatiently -Hypernatremia-Needs free water flushes via PEG tube, start 200 ml every 6 hours -Avoid nephrotoxic agents -Monitor I/O's -Renally dose medications -Continue to monitor
[2019-09-12] MEDS ORDERED: PNEUMOCOCCAL 23 Valent 0.5 ML VIAL IM ONE (12:00)
[2019-09-12] MEDS ORDERED: FLU VACC QUAD 2019-20 (3 YR UP)/PF 60 MCG/0.5 ML SYRINGE IM ONE (12:00)
--- NOTE | 2019-09-12 14:36 | Consultation ---
History of Present Illness Consult date: 09/12/19 - History of present illness History of present illness: 74 yo diabetic male with PD and right heel ulcer. He is non-conversant and appears non-ambulatory. No family is present or listed on his face sheet. Past History Past Medical History: diabetes, GERD, hypertension, other (Dementia, PZ) Social history: full code. denies: smoking, alcohol abuse, prescription drug abuse, IV drug use Family history: diabetes Medications and Allergies Allergies Allergy/AdvReac Type Severity Reaction Status Date / Time MINE Inhibitors Allergy Unknown Verified 09/11/19 11:33 atorvastatin Allergy Unknown Verified 09/11/19 11:33 erythromycin base Allergy Unknown Verified 09/11/19 11:33 felodipine Allergy Unknown Verified 09/11/19 11:33 lisinopril Allergy Unknown Verified 09/11/19 11:33 Penicillins Allergy Unknown Verified 09/11/19 11:33 simvastatin Allergy Unknown Verified 09/11/19 11:33 Home Medications Medication Instructions Recorded Confirmed Last Taken Type Acetaminophen [Acetaminophen ORAL 160 mg PO Q4HR PRN 09/10/19 09/10/19 Unknown History LIQ] Aspirin [Aspirin BABY CHEW TAB] 81 mg PO QDAY 09/10/19 09/10/19 Unknown History Baclofen [Ozobax] 5 mg PO BID 09/10/19 09/10/19 Unknown History Brimonidine Tartrate [Brimonidine 1 drop OU Q8HR 09/10/19 09/10/19 Unknown History Tartrate 0.2%] Cholecalciferol (Vitamin D3) 1,000 unit PO QDAY 09/10/19 09/10/19 Unknown History [Vitamin D3 500U/5ML] Docusate Sodium [Colace ORAL LIQ] 100 mg FEEDTUBE QDAY 09/10/19 09/10/19 Unknown History Emollient Combination No.112 454 gm TP Q6HR 09/10/19 09/10/19 Unknown History [Emollient Cream] Gabapentin [Neurontin] 300 mg PO Q8HR 09/10/19 09/10/19 Unknown History Insulin Glargine,Hum.rec.anlog 28 unit SQ QAM 09/10/19 09/10/19 Unknown History [Basaglar Kwikpen U-100] Latanoprost 0.005% [Xalatan 0.005%] 1 drop OP QPM 09/10/19 09/10/19 Unknown History Levothyroxine [Synthroid] 100 mcg PO QAM 09/10/19 09/10/19 Unknown History Lidocaine 5 gm TP Q12HR 09/10/19 09/10/19 Unknown History Lispro Insulin [HumaLOG] 0 unit SQ ACHS 09/10/19 09/10/19 Unknown History Magnesium Hydroxide [Milk of 30 mg PO QDAY 09/10/19 09/10/19 Unknown History Magnesia] Melatonin 3 mg PO QHS 09/10/19 09/10/19 Unknown History Metoprolol [Lopressor] 12.5 mg PO BID 09/10/19 09/10/19 Unknown History Multivitamin [Multiple Vitamins] 1 each PO QDAY 09/10/19 09/10/19 Unknown History Nutritional Supplement/Fiber 30 ml PO QDAY 09/10/19 09/10/19 Unknown History [Promote with Fiber Liquid] Quetiapine Fumarate [SEROquel XR] 50 mg PO QHS 09/10/19 09/10/19 Unknown History Sennosides [Senna] 8.6 mg PO QDAY 09/10/19 09/10/19 Unknown History metroNIDAZOLE [metroNIDAZOLE GEL 55 gm TP QDAY 09/10/19 09/10/19 Unknown History 1% TOPICAL] traMADoL [Ultram] 50 mg PO Q8HR 09/10/19 09/10/19 Unknown History Active Meds: Active Medications Acetaminophen (Tylenol) 650 mg PO Q6H PRN PRN Reason: Pain MILD(1-3)/Fever >100.5/VAZQUEZ Acetaminophen (Tylenol) 650 mg [place] Q6H PRN PRN Reason: Pain MILD(1-3)/Fever >100.5/VAZQUEZ Last Admin: 09/11/19 21:32 Dose: 650 mg Documented by: Lipase/Protease/Amylase (Pancreaze Dr 10,500 Unit) 1 each FEEDTUBE PRN PRN PRN Reason: For Clogged Feeding Tube Famotidine (Pepcid) 20 mg IV BID [facility] Last Admin: 09/12/19 09:29 Dose: 20 mg Documented by: Heparin Sodium (Porcine) (Heparin) 5,000 unit SUB-Q Q12HR [facility] Last Admin: 09/12/19 09:29 Dose: 5,000 unit Documented by: Norepinephrine (Levophed Drip 4 Mg/Ns 250 Ml) 4 mg in 250 mls @ 7.5 mls/hr IV TITR [facility]; Protocol Last Titration: 09/11/19 09:03 Dose: 0 mcg/min, 0 mls/hr Documented by: Cefepime HCl (Cefepime/Ns 1 Gm/100 Ml) 1 gm in 100 mls @ 200 mls/hr IV Q12H [facility]; Protocol Last Admin: 09/12/19 14:08 Dose: 200 mls/hr Documented by: Vancomycin HCl (Vancomycin/Ns 1 Gm/250 Ml) 1 gm in 250 mls @ 167.007 mls/hr IV Q24H [facility] Last Admin: 09/11/19 21:33 Dose: 167.007 mls/hr Documented by: Insulin Human Lispro (Humalog) 0 unit SUB-Q Q6HR [facility]; Protocol Last Admin: 09/12/19 13:45 Dose: Not Given Documented by: Naloxone HCl (Naloxone) 0.1 mg IV Q2MIN PRN PRN Reason: Res Rate </= 8 or 02 SAT < 92% Simple Syrup (Simple Syrup) 15 ml FEEDTUBE PRN PRN PRN Reason: Hypoglycemia Simple Syrup (Simple Syrup) 30 ml FEEDTUBE PRN PRN PRN Reason: Hypoglycemia Sodium Bicarbonate (Sodium Bicarbonate) 325 mg FEEDTUBE PRN PRN PRN Reason: For Clogged Feeding Tube Sodium Chloride (Sodium Chloride Flush Syringe 10 Ml) 10 ml IV BID [facility] Last Admin: 09/12/19 09:30 Dose: 10 ml Documented by: Sodium Chloride (Sodium Chloride Flush Syringe 10 Ml) 10 ml IV PRN PRN PRN Reason: LINE FLUSH Last Admin: 09/12/19 04:16 Dose: 10 ml Documented by: Review of Systems ROS unobtainable: due to mental status Exam Vital Signs BP 74/47 09/10/19 16:09 - General physical appearance Positive: chronically ill - Eyes Positive: PERRL, normal occular movement - ENT Positive: normal pinna, normal nares, normal mucosa, no hearing loss, no congestion - Neck Positive: no masses, no bruits, trachea midline, no venous distension - Respiratory Positive: normal expansion, normal respiratory effort, clear to auscultation - Cardiovascular Rhythm: regular Heart Sounds: Present: S1 & S2. Absent: rub, click - Extremities Extremities: no ischemia, pulses symmetrical, No edema - Breasts Breasts: deferred - Abdomen Abdomen: Present: soft, bowel sounds normal. Absent: tender, distended Hernia: none - Genitourinary Male Genitourinary: deferred - Integumentary other (There is a 4.5 X 4 cm black dry eschar on the right medial heel. There are no associated signs of infection. Right DP is 2+. I believe the right PT is 2+ also but it is difficult to be sure b/o his tremor.) - Musculoskeletal other (Bilateral knee flexion contractures) - Psychiatric Psychiatric: other (non-conversant) Results - Labs 09/12/19 05:39 09/12/19 05:39 Abnormal lab results 09/11/19 09/11/19 09/12/19 Range/Units 18:40 22:12 05:39 WBC 13.0 H (4.5-11.0) K/mm3 RBC 3.43 L (3.65-5.03) M/mm3 Hgb 9.7 L (11.8-15.2) gm/dl Hct 30.3 L (35.5-45.6) % RDW 18.0 H (13.2-15.2) % Seg Neuts % (Manual) 95.0 H (40.0-70.0) % Lymphocytes % (Manual) 3.0 L (13.4-35.0) % Seg Neutrophils # Man 12.4 H (1.8-7.7) K/mm3 Lymphocytes # (Manual) 0.4 L (1.2-5.4) K/mm3 Sodium (137-145) mmol/L Potassium (3.6-5.0) mmol/L Chloride (98-107) mmol/L Carbon Dioxide (22-30) mmol/L BUN (9-20) mg/dL Glucose (75-100) mg/dL POC Glucose 188 H 171 H (70-105) 09/12/19 09/12/19 09/12/19 Range/Units 05:39 07:19 12:00 WBC (4.5-11.0) K/mm3 RBC (3.65-5.03) M/mm3 Hgb (11.8-15.2) gm/dl Hct (35.5-45.6) % RDW (13.2-15.2) % Seg Neuts % (Manual) (40.0-70.0) % Lymphocytes % (Manual) (13.4-35.0) % Seg Neutrophils # Man (1.8-7.7) K/mm3 Lymphocytes # (Manual) (1.2-5.4) K/mm3 Sodium 150 H (137-145) mmol/L Potassium 3.5 L (3.6-5.0) mmol/L Chloride 118.3 H (98-107) mmol/L Carbon Dioxide 18 L (22-30) mmol/L BUN 39 H (9-20) mg/dL Glucose 180 H (75-100) mg/dL POC Glucose 155 H 154 H (70-105) Diabetes panel 09/12/19 Range/Units 05:39 Sodium 150 H (137-145) mmol/L Potassium 3.5 L (3.6-5.0) mmol/L Chloride 118.3 H (98-107) mmol/L Carbon Dioxide 18 L (22-30) mmol/L BUN 39 H (9-20) mg/dL Creatinine 1.0 (0.8-1.5) mg/dL Glucose 180 H (75-100) mg/dL Calcium 8.9 (8.4-10.2) mg/dL Calcium panel 09/12/19 Range/Units 05:39 Calcium 8.9 (8.4-10.2) mg/dL Pituitary panel 09/12/19 Range/Units 05:39 Sodium 150 H (137-145) mmol/L Potassium 3.5 L (3.6-5.0) mmol/L Chloride 118.3 H (98-107) mmol/L Carbon Dioxide 18 L (22-30) mmol/L BUN 39 H (9-20) mg/dL Creatinine 1.0 (0.8-1.5) mg/dL Glucose 180 H (75-100) mg/dL Calcium 8.9 (8.4-10.2) mg/dL Adrenal panel 09/12/19 Range/Units 05:39 Sodium 150 H (137-145) mmol/L Potassium 3.5 L (3.6-5.0) mmol/L Chloride 118.3 H (98-107) mmol/L Carbon Dioxide 18 L (22-30) mmol/L BUN 39 H (9-20) mg/dL Creatinine 1.0 (0.8-1.5) mg/dL Glucose 180 H (75-100) mg/dL Calcium 8.9 (8.4-10.2) mg/dL Assessment and Plan - Patient Problems (1) Type 2 diabetes mellitus with foot ulcer Current Visit: Yes Status: Acute Plan to address problem: 1) Local wound care 2) Off loading 3) MRI right foot 4) Arterial dopplers of RLE 5) Strict DM control 6) Check prealbumin 7) Right heel needs debridement but next of kin to give consent could not be found. NH to search for next of kin.
--- NOTE | 2019-09-12 15:20 | Ultrasound Report ---
ULTRASOUND RENAL INDICATION / CLINICAL INFORMATION: Bilateral hydronephrosis. COMPARISON: CT abdomen pelvis dated 09/10/2019 FINDINGS: RIGHT KIDNEY: Length = 9.8 cm. [normal > 9 cm] - Parenchymal Thickness = 1.1 cm. [normal > 1.5 cm] - Echogenicity: Normal. - Hydronephrosis: None. - Cyst or mass: No significant abnormality. - Stones: None seen. LEFT KIDNEY: Length = 10.8 cm. [normal > 9 cm] - Parenchymal Thickness = 1.2 cm. [normal > 1.5 cm] - Echogenicity: Normal. - Hydronephrosis: None. - Cyst or mass: No significant abnormality. - Stones: None seen. URINARY BLADDER: The bladder is empty and contains a Cole catheter. FREE FLUID: None. ADDITIONAL FINDINGS: None. IMPRESSION: No significant abnormality. No hydronephrosis. Signer Name: Mitch Rogers Jr, MD Signed: 09/12/2019 3:15 PM Workstation Name: [id number]
--- NOTE | 2019-09-12 15:58 | Vascular Lab Report ---
Right lower extremity arterial Doppler. HISTORY: Right heel ulcer. FINDINGS: Duplex Doppler evaluation of the arterial system of the right lower extremity was performed spectral waveform analysis. Antegrade flow is present on the right. Velocities are mildly elevated d istally. Waveforms are triphasic from the right common femoral artery through the popliteal artery bu t are monophasic distally. IMPRESSION: Suspect peripheral vascular disease at the level of the runoff vessels. Signer Name: Candelario Mauricio MD Signed: 09/12/2019 3:53 PM Workstation Name: [id number]
--- NOTE | 2019-09-12 18:00 | Progress Note ---
Assessment and Plan Assessment and plan: 74-year-old male with PMH of Dementia, PZ disease, GERD, LE contractures, [place] resident presents to the emergency department via EMS from [facility] with the complaint of seizure-like activity and altered mental status. The patient was also found to have a fever of 102.F with hypotension of SBP of 70s. No further history can be obtained from the patient due to advanced Dementia and PZ. PEr Medical records, patient is usually rather more verbal than this. He has been non verbal at the [place]. Started on IV antibiotics, evaluated by wound surgeon Dr. Santiago, recommend surgical debridement. --Right heel ulcer; Wound surgeon has evaluated the patient, possible surgical debridement Continue wound care, unable to do MRI due to pacemaker --Severe Sepsis; Probably secondary to UTI, empiric antibiotics, follow cultures Supportive care --ROXANNE; vasomotor nephropathy IV fluids, avoid nephrotoxins, monitor renal function --Anemia Secondary to kidney disease Monitor H&H transfuse as needed --Non-ST elevation NM[probably type II] Secondary to acute kidney injury Monitor closely, cardiology consult if needed --Dementia; Continue current home medications --Type 2 diabetes mellitus; Accu-Chek sliding scale coverage ADA diet insulin as needed --Severe protein calorie malnutrition; Nutrition supplements and supportive care --Febrile illness Fever of 102.& Secondary to sepsis, follow cultures Empiric antibiotics --FULL code status Monitor closely and adjust management as needed Plan of care reviewed with the patient's nurse Disposition; follow surgery evaluation recommendations DC when medically stable History Interval history: Patient seen and examined at the bedside Medical records reviewed Patient is minimally communicative Vital signs noted PUI?: No COVID19: Negative Hospitalist Physical - Constitutional Vitals: Temp Pulse Resp BP Pulse Ox 98.6 F 103 H 20 144/68 97 09/12/19 14:05 09/12/19 14:05 09/12/19 14:05 09/12/19 14:05 09/12/19 14:05 General appearance: Present: mild distress, cachectic, other (Noncommunicative) - EENT Eyes: Present: PERRL, EOM intact - Neck Neck: Present: supple, normal ROM - Respiratory Respiratory effort: normal Respiratory: bilateral: diminished, rhonchi, negative: rales, wheezing - Cardiovascular Rhythm: regular Heart Sounds: Present: S1 & S2 - Extremities Extremities: no ischemia, No edema, abnormal (Heel ulcer) Extremity abnormal: other (Contracted) - Abdominal General gastrointestinal: soft, non-tender, non-distended, normal bowel sounds - Integumentary Integumentary: Present: clear, warm - Psychiatric Psychiatric: other (Noncommunicative) - Neurologic Neurologic: other (Noncommunicative) Results - Labs CBC & Chem 7: 09/12/19 05:39 09/12/19 05:39 Labs: Laboratory Last Values WBC 13.0 K/mm3 (4.5-11.0) H 09/12/19 05:39 RBC 3.43 M/mm3 (3.65-5.03) L 09/12/19 05:39 Hgb 9.7 gm/dl (11.8-15.2) L 09/12/19 05:39 Hct 30.3 % (35.5-45.6) L 09/12/19 05:39 MCV 89 fl (84-94) 09/12/19 05:39 MCH 28 pg (28-32) 09/12/19 05:39 MCHC 32 % (32-34) 09/12/19 05:39 RDW 18.0 % (13.2-15.2) H 09/12/19 05:39 Plt Count 165 K/mm3 (140-440) 09/12/19 05:39 Add Manual Diff Complete 09/12/19 05:39 Total Counted 100 09/12/19 05:39 Seg Neutrophils % Automatic I Threading Machine Feeder 09/12/19 05:39 Seg Neuts % (Manual) 95.0 % (40.0-70.0) H 09/12/19 05:39 Band Neutrophils % 0 % 09/12/19 05:39 Lymphocytes % (Manual) 3.0 % (13.4-35.0) L 09/12/19 05:39 Reactive Lymphs % (Man) 0 % 09/12/19 05:39 Monocytes % (Manual) 1.0 % (0.0-7.3) 09/12/19 05:39 Eosinophils % (Manual) 1.0 % (0.0-4.3) 09/12/19 05:39 Basophils % (Manual) 0 % (0.0-1.8) 09/12/19 05:39 Metamyelocytes % 0 % 09/12/19 05:39 Myelocytes % 0 % 09/12/19 05:39 Promyelocytes % 0 % 09/12/19 05:39 Blast Cells % 0 % 09/12/19 05:39 Nucleated RBC % Not Reportable 09/12/19 05:39 Seg Neutrophils # Man 12.4 K/mm3 (1.8-7.7) H 09/12/19 05:39 Band Neutrophils # 0.0 K/mm3 09/12/19 05:39 Lymphocytes # (Manual) 0.4 K/mm3 (1.2-5.4) L 09/12/19 05:39 Abs React Lymphs (Man) 0.0 K/mm3 09/12/19 05:39 Monocytes # (Manual) 0.1 K/mm3 (0.0-0.8) 09/12/19 05:39 Eosinophils # (Manual) 0.1 K/mm3 (0.0-0.4) 09/12/19 05:39 Basophils # (Manual) 0.0 K/mm3 (0.0-0.1) 09/12/19 05:39 Metamyelocytes # 0.0 K/mm3 09/12/19 05:39 Myelocytes # 0.0 K/mm3 09/12/19 05:39 Promyelocytes # 0.0 K/mm3 09/12/19 05:39 Blast Cells # 0.0 K/mm3 09/12/19 05:39 WBC Morphology Not Reportable 09/12/19 05:39 Hypersegmented Neuts Not Reportable 09/12/19 05:39 Hyposegmented Neuts Not Reportable 09/12/19 05:39 Hypogranular Neuts Not Reportable 09/12/19 05:39 Smudge Cells Not Reportable 09/12/19 05:39 Toxic Granulation Not Reportable 09/12/19 05:39 Toxic Vacuolation Not Reportable 09/12/19 05:39 Dohle Bodies Not Reportable 09/12/19 05:39 Pelger-Huet Anomaly Not Reportable 09/12/19 05:39 Deny Rods Not Reportable 09/12/19 05:39 Platelet Estimate Consistent w auto 09/12/19 05:39 Clumped Platelets Not Reportable 09/12/19 05:39 Plt Clumps, EDTA Not Reportable 09/12/19 05:39 Large Platelets Not Reportable 09/12/19 05:39 Giant Platelets Not Reportable 09/12/19 05:39 Platelet Satelliting Not Reportable 09/12/19 05:39 Plt Morphology Comment Not Reportable 09/12/19 05:39 RBC Morphology Not Reportable 09/12/19 05:39 Dimorphic RBCs Not Reportable 09/12/19 05:39 Polychromasia Not Reportable 09/12/19 05:39 Hypochromasia Not Reportable 09/12/19 05:39 Poikilocytosis Not Reportable 09/12/19 05:39 Anisocytosis 1+ 09/12/19 05:39 Microcytosis Not Reportable 09/12/19 05:39 Macrocytosis Not Reportable 09/12/19 05:39 Spherocytes Not Reportable 09/12/19 05:39 Pappenheimer Bodies Not Reportable 09/12/19 05:39 Sickle Cells Not Reportable 09/12/19 05:39 Target Cells Not Reportable 09/12/19 05:39 Tear Drop Cells Not Reportable 09/12/19 05:39 Ovalocytes Not Reportable 09/12/19 05:39 Helmet Cells Not Reportable 09/12/19 05:39 [place] Bodies Not Reportable 09/12/19 05:39 Rush Rings Not Reportable 09/12/19 05:39 Marlo Cells Not Reportable 09/12/19 05:39 Bite Cells Not Reportable 09/12/19 05:39 Crenated Cell Not Reportable 09/12/19 05:39 Elliptocytes Not Reportable 09/12/19 05:39 Acanthocytes (Spur) Not Reportable 09/12/19 05:39 Rouleaux Not Reportable 09/12/19 05:39 Hemoglobin C Crystals Not Reportable 09/12/19 05:39 Schistocytes Not Reportable 09/12/19 05:39 Malaria parasites Not Reportable 09/12/19 05:39 Gonsalo Bodies Not Reportable 09/12/19 05:39 Hem Pathologist Commnt No 09/12/19 05:39 VBG pH 7.160 (7.320-7.420) L* 09/10/19 18:15 Sodium 150 mmol/L (137-145) H 09/12/19 05:39 Potassium 3.5 mmol/L (3.6-5.0) L 09/12/19 05:39 Chloride 118.3 mmol/L (98-107) H 09/12/19 05:39 Carbon Dioxide 18 mmol/L (22-30) L 09/12/19 05:39 Anion Gap 17 mmol/L 09/12/19 05:39 BUN 39 mg/dL (9-20) H 09/12/19 05:39 Creatinine 1.0 mg/dL (0.8-1.5) 09/12/19 05:39 Estimated GFR > 60 ml/min 09/12/19 05:39 BUN/Creatinine Ratio 39 % 09/12/19 05:39 Glucose 180 mg/dL (75-100) H 09/12/19 05:39 POC Glucose 148 (70-105) H 09/12/19 16:58 Lactic Acid 1.30 mmol/L (0.7-2.0) 09/11/19 Unknown Calcium 8.9 mg/dL (8.4-10.2) 09/12/19 05:39 Magnesium 2.30 mg/dL (1.7-2.3) 09/12/19 05:39 Ferritin 204.6 ng/mL (13.0-400.0) 09/10/19 16:20 Total Bilirubin 0.20 mg/dL (0.1-1.2) 09/11/19 04:00 AST 22 units/L (5-40) 09/11/19 04:00 ALT 15 units/L (7-56) 09/11/19 04:00 Alkaline Phosphatase 86 units/L (35-129) 09/11/19 04:00 Lactate Dehydrogenase 308 units/L (91-180) H 09/10/19 16:32 Troponin T 0.238 ng/mL (0.00-0.029) H* 09/10/19 16:20 C-Reactive Protein 16.50 mg/dL (0.00-1.30) H 09/10/19 16:32 Total Protein 5.9 g/dL (6.3-8.2) L 09/11/19 04:00 Albumin 2.5 g/dL (3.9-5) L 09/11/19 04:00 Albumin/Globulin Ratio 0.7 % 09/11/19 04:00 Prealbumin 0.090 g/L (0.200-0.400) L 09/12/19 14:57 Triglycerides 89 mg/dL (2-149) 09/10/19 16:20 Cholesterol 101 mg/dL (50-199) 09/10/19 16:20 LDL Cholesterol Direct 61 mg/dL (50-130) 09/10/19 16:20 HDL Cholesterol 31 mg/dL (40-59) L 09/10/19 16:20 Cholesterol/HDL Ratio 3.25 % 09/10/19 16:20 Procalcitonin 160.37 ng/mL (<0.15) 09/10/19 16:20 TSH 2.520 mlU/mL (0.270-4.200) 09/10/19 16:20 Urine Color Red (Yellow) 09/10/19 Unknown Urine Turbidity Cloudy (Clear) 09/10/19 Unknown Urine pH 7.0 (5.0-7.0) 09/10/19 Unknown Ur Specific Kane 1.014 (1.003-1.030) 09/10/19 Unknown Urine Protein >500 mg/dL (Negative) 09/10/19 Unknown Urine Glucose (UA) Neg mg/dL (Negative) 09/10/19 Unknown Urine Ketones Neg mg/dL (Negative) 09/10/19 Unknown Urine Blood Mod (Negative) 09/10/19 Unknown Urine Nitrite Neg (Negative) 09/10/19 Unknown Urine Bilirubin Neg (Negative) 09/10/19 Unknown Urine Urobilinogen < 2.0 mg/dL (<2.0) 09/10/19 Unknown Ur Leukocyte Esterase Mod (Negative) 09/10/19 Unknown Urine WBC (Auto) 80.0 /HPF (0.0-6.0) H 09/10/19 Unknown Urine RBC (Auto) > 182.0 /HPF (0.0-6.0) 09/10/19 Unknown U Epithel Cells (Auto) < 1.0 /HPF (0-13.0) 09/10/19 Unknown Urine Bacteria (Auto) 1+ /HPF (Negative) 09/10/19 Unknown Coronavirus (PCR) Negative (Negative) 09/11/19 10:59 Influenza A (Rapid) Negative (Negative) 09/10/19 Unknown Influenza B (Rapid) Negative (Negative) 09/10/19 Unknown Microbiology: Microbiology 09/10/19 Unknown Urine,Clean Catch Urine Culture - Final 09/10/19 Unknown Peripheral/Venous Blood Culture - Preliminary Proteus Mirabilis 09/10/19 Unknown Peripheral/Venous Blood Culture - Preliminary Cole/IV: Voiding Method Indwelling Catheter IV Catheter Type [Left INT / Saline Lock Antecubital] Active Medications - Current Medications Current Medications: Generic Name Dose Route Start Last Admin Trade Name Freq PRN Reason Stop Dose Admin Acetaminophen 650 mg 09/10/19 23:07 Tylenol PO Q6H PRN Pain MILD(1-3)/Fever >100.5/VAZQUEZ Acetaminophen 650 mg 09/10/19 23:07 09/11/19 21:32 Tylenol NE 650 mg Q6H PRN Administration Pain MILD(1-3)/Fever >100.5/VAZQUEZ Lipase/Protease/Amylase 1 each 09/11/19 19:[address] 10,500 Unit FEEDTUBE PRN PRN For Clogged Feeding Tube Famotidine 20 mg 09/12/19 10:00 09/12/19 09:29 Pepcid IV 20 mg BID LETY Administration Heparin Sodium (Porcine) 5,000 unit 09/11/19 10:00 09/12/19 09:29 Heparin SUB-Q 5,000 unit Q12HR LETY Administration Norepinephrine 4 mg in 250 mls @ 7.5 mls/hr 09/10/19 20:00 09/11/19 09:03 Levophed Drip 4 Mg/Ns 250 Ml IV 0 mcg/min TITR LETY 0 mls/hr Titration Protocol 2 MCG/MIN Cefepime HCl 1 gm in 100 mls @ 200 mls/hr 09/11/19 12:00 09/12/19 14:08 Cefepime/Ns 1 Gm/100 Ml IV 200 mls/hr Q12H LETY Administration Protocol Vancomycin HCl 1 gm in 250 mls @ 167.007 mls/hr 09/11/19 22:00 09/11/19 21:33 Vancomycin/Ns 1 Gm/250 Ml IV 167.007 mls/hr Q24H LETY Administration Insulin Human Lispro 0 unit 09/12/19 00:00 09/12/19 17:21 Humalog SUB-Q Not Given Q6HR LETY Protocol Naloxone HCl 0.1 mg 09/10/19 23:07 Naloxone IV Q2MIN PRN Res Rate </= 8 or 02 SAT < 92% Simple Syrup 15 ml 09/11/19 19:04 Simple Syrup FEEDTUBE PRN PRN Hypoglycemia Simple Syrup 30 ml 09/11/19 19:04 Simple Syrup FEEDTUBE PRN PRN Hypoglycemia Sodium Bicarbonate 325 mg 09/11/19 19:04 Sodium Bicarbonate FEEDTUBE PRN PRN For Clogged Feeding Tube Sodium Chloride 10 ml 09/11/19 10:00 09/12/19 09:30 Sodium Chloride Flush Syringe 10 Ml IV 10 ml BID LETY Administration Sodium Chloride 10 ml 09/10/19 23:07 09/12/19 04:16 Sodium Chloride Flush Syringe 10 Ml IV 10 ml PRN PRN Administration LINE FLUSH Nutrition/Malnutrition Assess - Dietary Evaluation Nutrition/Malnutrition Findings: Nutrition Notes Start: 09/11/19 09:00 Freq: Status: Active Protocol: Document 09/12/19 08:22 LM (Rec: 09/12/19 08:30 LM [email or web address]) Nutrition Notes Need for Assessment generated from: MD Order Initial or Follow up Reassessment Current Diagnosis Acute Kidney Injury,Diabetes, Sepsis,Hyperlipidemia Other Pertinent Diagnosis Parkinsons disease, fever, R foot/L hip/sacral wounds, dementia Current Diet NPO Labs/Tests Na 150 K 3.5 BG 180 Pertinent Medications Reviewed Height 5 ft 6 in Weight 66.4 kg [place] Body Weight (kg) 64.54 BMI 23.6 Weight Status Appropriate Subjective/Other Information MD consult for TF. Pt is nonverbal, on venturi mask, and has PEG. 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 No Is Patient Ambulatory and/or Out of Bed No REE-([facility]-confined to bed) 7940.960 Calculation Used for Recommendations [facility] Additional Notes Protein: 53-100g (0.8-1.5g/kg) ROXANNE and wound needs Fluid: 1 ml/kcal Nutrition Intervention Change Diet Order: TF Nutrition Support: Glucerna 1.2 at 55ml/hr Flush 200ml q4h for hypernatremia Flush 90ml q4h once resolved Kcal 1,584 Protein (gm) 79 Fluid (mL) 1,063 Goal #1 TF start/tolerance Anticipated Discharge Needs: TF Follow-Up By: 09/16/19 Additional Comments F/U for TF start/tolerance, Na /K labs
[2019-09-12] MEDS: VANCOMYCIN/NS 1 GM/250 ML 1 GM/250 ML BAG IV SCH (22:40)
[2019-09-13] MEDS: CEFEPIME/NS 1 GM/100 ML 1 GM/100 ML BAG IV SCH ×3 (00:19→23:53)
[2019-09-13] MEDS: INSULIN LISPRO 100 UNIT/ML SUB-Q SCH ×3 (00:19→12:22)
[2019-09-13 04:18] LABS: Hematocrit 30.4 % (35.5-45.6); Hemoglobin 9.9 gm/dl (11.8-15.2); Mean Corpuscular HGB Conc 33 % (32-34); Mean Corpuscular Volume 88 fl (84-94); Platelet Count 144 K/mm3 (140-440); Red Blood Count 3.46 M/mm3 (3.65-5.03); Red Cell Distribution Width 18.1 % (13.2-15.2)
[2019-09-13 04:50] LABS: BUN/Creatinine Ratio 33; Blood Urea Nitrogen 26 mg/dL (9-20); Calcium 8.8 mg/dL (8.4-10.2); Hemolysis Index 4
[2019-09-13 05:54] LABS: Band Neutrophils # (Manual) 0.3 K/mm3; Basophils % (Manual) 0 % (0.0-1.8); Eosinophils % (Manual) 0 % (0.0-4.3); Total Cells Counted 100
[2019-09-13 05:55] LABS: Anisocytosis 1+; Platelet Estimate Consistent w Auto
[2019-09-13] MEDS: ACETAMINOPHEN 325 MG TAB PO PRN ×2 (07:54→16:09)
[2019-09-13] MEDS: FAMOTIDINE 20 MG/2 ML INJ IV SCH ×2 (09:20→21:42)
[2019-09-13] MEDS: HEPARIN 5,000 UNIT/1 ML VIAL SUB-Q SCH ×2 (09:21→21:42)
--- NOTE | 2019-09-13 11:24 | Progress Note ---
Assessment and Plan Assessment: Acute Renal Failure likely secondary to ATN secondary to Sepsis and Hypotension Severe Sepsis UTI Dementia DM Hypernatremia Plan: -ROXANNE resolved - will start D5W 75 cc/h for rising sodium, can increase water flushes -CT of abd/pelvis- showed mild, symmetric bilateral ureteronephrosis- can f/u with Urology outpatiently -Avoid nephrotoxic agents -Monitor I/O's -Renally dose medications -Continue to monitor Subjective Date of service: 09/13/19 Principal diagnosis: ROXANNE Interval history: patient is non verbal, no overnight events reported PUI?: No COVID19: Negative Objective - Vital Signs Vital signs: Vital Signs - 12hr 09/13/19 09/13/19 09/13/19 00:13 04:23 07:06 Temperature 97.5 F L 100.6 F H Pulse Rate 109 H 105 H Pulse Rate [ 88 Apical] Respiratory 24 28 H 20 Rate Blood Pressure 145/61 144/63 O2 Sat by Pulse 95 100 100 Oximetry 09/13/19 09/13/19 09/13/19 07:50 08:38 10:47 Temperature 100.8 F H 99.4 F Pulse Rate 99 H Pulse Rate [ Apical] Respiratory 18 Rate Blood Pressure 150/80 O2 Sat by Pulse Oximetry 09/13/19 10:57 Temperature Pulse Rate Pulse Rate [ Apical] Respiratory Rate Blood Pressure O2 Sat by Pulse 100 Oximetry - General Appearance General appearance: cachectic EENT: ATNC, PERRL Neck: no JVD, no carotid bruit Respiratory: Present: Clear to Ascultation Cardiology: regular, S1S2 Gastrointestinal: normoactive bowel sounds Integumentary: no rash Neurologic: no focal deficit Musculoskeletal: other (no edema in BLE) Psychiatric: other (non verbal) - Lab 09/13/19 03:55 09/13/19 03:55 Most recent lab results Calcium 8.8 mg/dL (8.4-10.2) 09/13/19 03:55 Magnesium 2.30 mg/dL (1.7-2.3) 09/12/19 05:39 Medications & Allergies - Medications Allergies/Adverse Reactions: Allergies MINE Inhibitors Allergy (Verified 09/11/19 11:33) Unknown atorvastatin Allergy (Verified 09/11/19 11:33) Unknown erythromycin base Allergy (Verified 09/11/19 11:33) Unknown felodipine Allergy (Verified 09/11/19 11:33) Unknown lisinopril Allergy (Verified 09/11/19 11:33) Unknown Penicillins Allergy (Verified 09/11/19 11:33) Unknown simvastatin Allergy (Verified 09/11/19 11:33) Unknown Home Medications: Home Medications Medication Instructions Recorded Confirmed Last Taken Type Acetaminophen [Acetaminophen ORAL 160 mg PO Q4HR PRN 09/10/19 09/10/19 Unknown History LIQ] Aspirin [Aspirin BABY CHEW TAB] 81 mg PO QDAY 09/10/19 09/10/19 Unknown History Baclofen [Ozobax] 5 mg PO BID 09/10/19 09/10/19 Unknown History Brimonidine Tartrate [Brimonidine 1 drop OU Q8HR 09/10/19 09/10/19 Unknown History Tartrate 0.2%] Cholecalciferol (Vitamin D3) 1,000 unit PO QDAY 09/10/19 09/10/19 Unknown History [Vitamin D3 500U/5ML] Docusate Sodium [Colace ORAL LIQ] 100 mg FEEDTUBE QDAY 09/10/19 09/10/19 Unknown History Emollient Combination No.112 454 gm TP Q6HR 09/10/19 09/10/19 Unknown History [Emollient Cream] Gabapentin [Neurontin] 300 mg PO Q8HR 09/10/19 09/10/19 Unknown History Insulin Glargine,Hum.rec.anlog 28 unit SQ QAM 09/10/19 09/10/19 Unknown History [Basaglar Kwikpen U-100] Latanoprost 0.005% [Xalatan 0.005%] 1 drop OP QPM 09/10/19 09/10/19 Unknown History Levothyroxine [Synthroid] 100 mcg PO QAM 09/10/19 09/10/19 Unknown History Lidocaine 5 gm TP Q12HR 09/10/19 09/10/19 Unknown History Lispro Insulin [HumaLOG] 0 unit SQ ACHS 09/10/19 09/10/19 Unknown History Magnesium Hydroxide [Milk of 30 mg PO QDAY 09/10/19 09/10/19 Unknown History Magnesia] Melatonin 3 mg PO QHS 09/10/19 09/10/19 Unknown History Metoprolol [Lopressor] 12.5 mg PO BID 09/10/19 09/10/19 Unknown History Multivitamin [Multiple Vitamins] 1 each PO QDAY 09/10/19 09/10/19 Unknown History Nutritional Supplement/Fiber 30 ml PO QDAY 09/10/19 09/10/19 Unknown History [Promote with Fiber Liquid] Quetiapine Fumarate [SEROquel XR] 50 mg PO QHS 09/10/19 09/10/19 Unknown History Sennosides [Senna] 8.6 mg PO QDAY 09/10/19 09/10/19 Unknown History metroNIDAZOLE [metroNIDAZOLE GEL 55 gm TP QDAY 09/10/19 09/10/19 Unknown History 1% TOPICAL] traMADoL [Ultram] 50 mg PO Q8HR 09/10/19 09/10/19 Unknown History Active Medications: Generic Name Dose Route Start Last Admin Trade Name Freq PRN Reason Stop Dose Admin Acetaminophen 650 mg 09/10/19 23:07 09/13/19 07:54 Tylenol PO 650 mg Q6H PRN Administration Pain MILD(1-3)/Fever >100.5/VAZQUEZ Acetaminophen 650 mg 09/10/19 23:07 09/11/19 21:32 Tylenol [place] 650 mg Q6H PRN Administration Pain MILD(1-3)/Fever >100.5/VAZQUEZ Lipase/Protease/Amylase 1 each 09/11/19 19:[address] 10,500 Unit FEEDTUBE PRN PRN For Clogged Feeding Tube Famotidine 20 mg 09/12/19 10:00 09/13/19 09:20 Pepcid IV 20 mg BID LETY Administration Heparin Sodium (Porcine) 5,000 unit 09/11/19 10:00 09/13/19 09:21 Heparin SUB-Q 5,000 unit Q12HR LETY Administration Norepinephrine 4 mg in 250 mls @ 7.5 mls/hr 09/10/19 20:00 09/11/19 09:03 Levophed Drip 4 Mg/Ns 250 Ml IV 0 mcg/min TITR LETY 0 mls/hr Titration Protocol 2 MCG/MIN Cefepime HCl 1 gm in 100 mls @ 200 mls/hr 09/11/19 12:00 09/13/19 00:19 Cefepime/Ns 1 Gm/100 Ml IV 200 mls/hr Q12H LETY Administration Protocol Vancomycin HCl 1 gm in 250 mls @ 167.007 mls/hr 09/11/19 22:00 09/12/19 22:40 Vancomycin/Ns 1 Gm/250 Ml IV 167.007 mls/hr Q24H LETY Administration Dextrose 1,000 mls @ 75 mls/hr 09/13/19 12:00 D5w IV DIRECT [facility] Insulin Human Lispro 0 unit 09/12/19 00:00 09/13/19 06:45 Humalog SUB-Q Not Given Q6HR [facility] Protocol Naloxone HCl 0.1 mg 09/10/19 23:07 Naloxone IV Q2MIN PRN Res Rate </= 8 or 02 SAT < 92% Simple Syrup 15 ml 09/11/19 19:04 Simple Syrup FEEDTUBE PRN PRN Hypoglycemia Simple Syrup 30 ml 09/11/19 19:04 Simple Syrup FEEDTUBE PRN PRN Hypoglycemia Sodium Bicarbonate 325 mg 09/11/19 19:04 Sodium Bicarbonate FEEDTUBE PRN PRN For Clogged Feeding Tube Sodium Chloride 10 ml 09/11/19 10:00 09/13/19 09:26 Sodium Chloride Flush Syringe 10 Ml IV 10 ml BID LETY Administration Sodium Chloride 10 ml 09/10/19 23:07 09/12/19 04:16 Sodium Chloride Flush Syringe 10 Ml IV 10 ml PRN PRN Administration LINE FLUSH
[2019-09-13] MEDS: DEXTROSE 5% IN WATER 1,000 ML IV SCH ×2 (12:22→23:54)
--- NOTE | 2019-09-13 13:36 | Progress Note ---
Assessment and Plan - Patient Problems (1) Non-STEMI (non-ST elevated myocardial infarction) Current Visit: Yes Status: Acute Plan to address problem: Has resolved secondary to acute renal failure and decreased perfusion. (2) Acute renal failure Current Visit: Yes Status: Acute Qualifiers: Acute renal failure type: unspecified Qualified Code(s): N17.9 - Acute kidney failure, unspecified Plan to address problem: Acute renal failure secondary to vasomotor nephropathy improving. Follow-up labs in a.m. (3) Lactic acidosis Current Visit: Yes Status: Acute Plan to address problem: Secondary to severe sepsis. (4) Septic shock Current Visit: Yes Status: Acute (5) Type 2 diabetes mellitus with foot ulcer Current Visit: Yes Status: Acute Plan to address problem: Currently suboptimally controlled. Not on sliding scale. Add sliding scale and long-acting insulin. History Interval history: Patient confused today not answering any questions. Remains encephalopathic. Demented. Patient had fever overnight T-max 102.1. Patient was tested COVID negative. PUI?: No COVID19: Negative Hospitalist Physical - Constitutional Vitals: Temp Pulse Resp BP Pulse Ox 99.4 F 99 H 18 150/80 100 09/13/19 10:47 09/13/19 08:38 09/13/19 07:50 09/13/19 07:50 09/13/19 10:57 General appearance: Present: mild distress, cachectic - EENT Eyes: Present: PERRL, EOM intact - Neck Neck: Present: supple, normal ROM - Respiratory Respiratory: bilateral: CTA - Cardiovascular Rhythm: regular - Extremities Extremities: pulses intact Extremity abnormal: other (Right heel wound scheduled for surgical debridement.) Peripheral Pulses: within normal limits - Abdominal General gastrointestinal: soft, non-tender, non-distended, normal bowel sounds - Neurologic Neurologic: CNII-XII intact Results - Labs CBC & Chem 7: 09/13/19 03:55 09/13/19 03:55 Labs: Laboratory Last Values WBC 7.7 K/mm3 (4.5-11.0) 09/13/19 03:55 RBC 3.46 M/mm3 (3.65-5.03) L 09/13/19 03:55 Hgb 9.9 gm/dl (11.8-15.2) L 09/13/19 03:55 Hct 30.4 % (35.5-45.6) L 09/13/19 03:55 MCV 88 fl (84-94) 09/13/19 03:55 MCH 29 pg (28-32) 09/13/19 03:55 MCHC 33 % (32-34) 09/13/19 03:55 RDW 18.1 % (13.2-15.2) H 09/13/19 03:55 Plt Count 144 K/mm3 (140-440) 09/13/19 03:55 Add Manual Diff Complete 09/13/19 03:55 Total Counted 100 09/13/19 03:55 Seg Neutrophils % Crusher Feeder 09/13/19 03:55 Seg Neuts % (Manual) 93.0 % (40.0-70.0) H 09/13/19 03:55 Band Neutrophils % 4.0 % 09/13/19 03:55 Lymphocytes % (Manual) 2.0 % (13.4-35.0) L 09/13/19 03:55 Reactive Lymphs % (Man) 0 % 09/13/19 03:55 Monocytes % (Manual) 1.0 % (0.0-7.3) 09/13/19 03:55 Eosinophils % (Manual) 0 % (0.0-4.3) 09/13/19 03:55 Basophils % (Manual) 0 % (0.0-1.8) 09/13/19 03:55 Metamyelocytes % 0 % 09/13/19 03:55 Myelocytes % 0 % 09/13/19 03:55 Promyelocytes % 0 % 09/13/19 03:55 Blast Cells % 0 % 09/13/19 03:55 Nucleated RBC % Not Reportable 09/13/19 03:55 Seg Neutrophils # Man 7.2 K/mm3 (1.8-7.7) 09/13/19 03:55 Band Neutrophils # 0.3 K/mm3 09/13/19 03:55 Lymphocytes # (Manual) 0.2 K/mm3 (1.2-5.4) L 09/13/19 03:55 Abs React Lymphs (Man) 0.0 K/mm3 09/13/19 03:55 Monocytes # (Manual) 0.1 K/mm3 (0.0-0.8) 09/13/19 03:55 Eosinophils # (Manual) 0.0 K/mm3 (0.0-0.4) 09/13/19 03:55 Basophils # (Manual) 0.0 K/mm3 (0.0-0.1) 09/13/19 03:55 Metamyelocytes # 0.0 K/mm3 09/13/19 03:55 Myelocytes # 0.0 K/mm3 09/13/19 03:55 Promyelocytes # 0.0 K/mm3 09/13/19 03:55 Blast Cells # 0.0 K/mm3 09/13/19 03:55 WBC Morphology Not Reportable 09/13/19 03:55 Hypersegmented Neuts Not Reportable 09/13/19 03:55 Hyposegmented Neuts Not Reportable 09/13/19 03:55 Hypogranular Neuts Not Reportable 09/13/19 03:55 Smudge Cells Not Reportable 09/13/19 03:55 Toxic Granulation Not Reportable 09/13/19 03:55 Toxic Vacuolation Not Reportable 09/13/19 03:55 Dohle Bodies Not Reportable 09/13/19 03:55 Pelger-Huet Anomaly Not Reportable 09/13/19 03:55 Deny Rods Not Reportable 09/13/19 03:55 Platelet Estimate Consistent w auto 09/13/19 03:55 Clumped Platelets Not Reportable 09/13/19 03:55 Plt Clumps, EDTA Not Reportable 09/13/19 03:55 Large Platelets Not Reportable 09/13/19 03:55 Giant Platelets Not Reportable 09/13/19 03:55 Platelet Satelliting Not Reportable 09/13/19 03:55 Plt Morphology Comment Not Reportable 09/13/19 03:55 RBC Morphology Not Reportable 09/13/19 03:55 Dimorphic RBCs Not Reportable 09/13/19 03:55 Polychromasia Not Reportable 09/13/19 03:55 Hypochromasia Not Reportable 09/13/19 03:55 Poikilocytosis Not Reportable 09/13/19 03:55 Anisocytosis 1+ 09/13/19 03:55 Microcytosis Not Reportable 09/13/19 03:55 Macrocytosis Not Reportable 09/13/19 03:55 Spherocytes Not Reportable 09/13/19 03:55 Pappenheimer Bodies Not Reportable 09/13/19 03:55 Sickle Cells Not Reportable 09/13/19 03:55 Target Cells Not Reportable 09/13/19 03:55 Tear Drop Cells Not Reportable 09/13/19 03:55 Ovalocytes Not Reportable 09/13/19 03:55 Helmet Cells Not Reportable 09/13/19 03:55 Leonardo-Nibley Bodies Not Reportable 09/13/19 03:55 [place] Rings Not Reportable 09/13/19 03:55 [place] Cells Not Reportable 09/13/19 03:55 Bite Cells Not Reportable 09/13/19 03:55 Crenated Cell Not Reportable 09/13/19 03:55 Elliptocytes Not Reportable 09/13/19 03:55 Acanthocytes (Spur) Not Reportable 09/13/19 03:55 Rouleaux Not Reportable 09/13/19 03:55 Hemoglobin C Crystals Not Reportable 09/13/19 03:55 Schistocytes Not Reportable 09/13/19 03:55 Malaria parasites Not Reportable 09/13/19 03:55 [place] Bodies Not Reportable 09/13/19 03:55 Hem Pathologist Commnt No 09/13/19 03:55 VBG pH 7.160 (7.320-7.420) L* 09/10/19 18:15 Sodium 154 mmol/L (137-145) H 09/13/19 03:55 Potassium 3.3 mmol/L (3.6-5.0) L 09/13/19 03:55 Chloride 121.4 mmol/L (98-107) H 09/13/19 03:55 Carbon Dioxide 17 mmol/L (22-30) L 09/13/19 03:55 Anion Gap 19 mmol/L 09/13/19 03:55 BUN 26 mg/dL (9-20) H 09/13/19 03:55 Creatinine 0.8 mg/dL (0.8-1.5) 09/13/19 03:55 Estimated GFR > 60 ml/min 09/13/19 03:55 BUN/Creatinine Ratio 33 % 09/13/19 03:55 Glucose 181 mg/dL (75-100) H 09/13/19 03:55 POC Glucose 189 (70-105) H 09/13/19 11:38 Lactic Acid 1.30 mmol/L (0.7-2.0) 09/11/19 Unknown Calcium 8.8 mg/dL (8.4-10.2) 09/13/19 03:55 Magnesium 2.30 mg/dL (1.7-2.3) 09/12/19 05:39 Ferritin 204.6 ng/mL (13.0-400.0) 09/10/19 16:20 Total Bilirubin 0.20 mg/dL (0.1-1.2) 09/11/19 04:00 AST 22 units/L (5-40) 09/11/19 04:00 ALT 15 units/L (7-56) 09/11/19 04:00 Alkaline Phosphatase 86 units/L (35-129) 09/11/19 04:00 Lactate Dehydrogenase 308 units/L (91-180) H 09/10/19 16:32 Troponin T 0.238 ng/mL (0.00-0.029) H* 09/10/19 16:20 C-Reactive Protein 16.50 mg/dL (0.00-1.30) H 09/10/19 16:32 Total Protein 5.9 g/dL (6.3-8.2) L 09/11/19 04:00 Albumin 2.5 g/dL (3.9-5) L 09/11/19 04:00 Albumin/Globulin Ratio 0.7 % 09/11/19 04:00 Prealbumin 0.090 g/L (0.200-0.400) L 09/12/19 14:57 Triglycerides 89 mg/dL (2-149) 09/10/19 16:20 Cholesterol 101 mg/dL (50-199) 09/10/19 16:20 LDL Cholesterol Direct 61 mg/dL (50-130) 09/10/19 16:20 HDL Cholesterol 31 mg/dL (40-59) L 09/10/19 16:20 Cholesterol/HDL Ratio 3.25 % 09/10/19 16:20 Procalcitonin 160.37 ng/mL (<0.15) 09/10/19 16:20 TSH 2.520 mlU/mL (0.270-4.200) 09/10/19 16:20 Urine Color Red (Yellow) 09/10/19 Unknown Urine Turbidity Cloudy (Clear) 09/10/19 Unknown Urine pH 7.0 (5.0-7.0) 09/10/19 Unknown Ur Specific [place] 1.014 (1.003-1.030) 09/10/19 Unknown Urine Protein >500 mg/dL (Negative) 09/10/19 Unknown Urine Glucose (UA) Neg mg/dL (Negative) 09/10/19 Unknown Urine Ketones Neg mg/dL (Negative) 09/10/19 Unknown Urine Blood Mod (Negative) 09/10/19 Unknown Urine Nitrite Neg (Negative) 09/10/19 Unknown Urine Bilirubin Neg (Negative) 09/10/19 Unknown Urine Urobilinogen < 2.0 mg/dL (<2.0) 09/10/19 Unknown Ur Leukocyte Esterase Mod (Negative) 09/10/19 Unknown Urine WBC (Auto) 80.0 /HPF (0.0-6.0) H 09/10/19 Unknown Urine RBC (Auto) > 182.0 /HPF (0.0-6.0) 09/10/19 Unknown U Epithel Cells (Auto) < 1.0 /HPF (0-13.0) 09/10/19 Unknown Urine Bacteria (Auto) 1+ /HPF (Negative) 09/10/19 Unknown Coronavirus (PCR) Negative (Negative) 09/11/19 10:59 Influenza A (Rapid) Negative (Negative) 09/10/19 Unknown Influenza B (Rapid) Negative (Negative) 09/10/19 Unknown Microbiology: Microbiology 09/10/19 Unknown Peripheral/Venous Blood Culture - Final Proteus Mirabilis 09/10/19 Unknown Peripheral/Venous Blood Culture - Final Proteus Mirabilis 09/10/19 Unknown Urine,Clean Catch Urine Culture - Final - Imaging and Cardiology CT scan - abdomen: report reviewed, image reviewed CT Scan - head: report reviewed Cole/IV: Voiding Method Indwelling Catheter IV Catheter Type [Left INT / Saline Lock Antecubital] Active Medications - Current Medications Current Medications: Generic Name Dose Route Start Last Admin Trade Name Freq PRN Reason Stop Dose Admin Acetaminophen 650 mg 09/10/19 23:07 09/13/19 07:54 Tylenol PO 650 mg Q6H PRN Administration Pain MILD(1-3)/Fever >100.5/VAZQUEZ Acetaminophen 650 mg 09/10/19 23:07 09/11/19 21:32 Tylenol [place] 650 mg Q6H PRN Administration Pain MILD(1-3)/Fever >100.5/VAZQUEZ Lipase/Protease/Amylase 1 each 09/11/19 19:04 Pancrejazmin [place] 10,500 Unit FEEDTUBE PRN PRN For Clogged Feeding Tube Famotidine 20 mg 09/12/19 10:00 09/13/19 09:20 Pepcid IV 20 mg BID LETY Administration Heparin Sodium (Porcine) 5,000 unit 09/11/19 10:00 09/13/19 09:21 Heparin SUB-Q 5,000 unit Q12HR LETY Administration Cefepime HCl 1 gm in 100 mls @ 200 mls/hr 09/11/19 12:00 09/13/19 12:22 Cefepime/Ns 1 Gm/100 Ml IV 200 mls/hr Q12H LETY Administration Protocol Vancomycin HCl 1 gm in 250 mls @ 167.007 mls/hr 09/11/19 22:00 09/12/19 22:40 Vancomycin/Ns 1 Gm/250 Ml IV 167.007 mls/hr Q24H LETY Administration Dextrose 1,000 mls @ 75 mls/hr 09/13/19 12:00 09/13/19 12:22 D5w IV 75 mls/hr DIRECT LETY Administration Insulin Human Lispro 0 unit 09/12/19 00:00 09/13/19 12:22 Humalog SUB-Q 2 unit Q6HR LETY Administration Protocol Naloxone HCl 0.1 mg 09/10/19 23:07 Naloxone IV Q2MIN PRN Res Rate </= 8 or 02 SAT < 92% Simple Syrup 15 ml 09/11/19 19:04 Simple Syrup FEEDTUBE PRN PRN Hypoglycemia Simple Syrup 30 ml 09/11/19 19:04 Simple Syrup FEEDTUBE PRN PRN Hypoglycemia Sodium Bicarbonate 325 mg 09/11/19 19:04 Sodium Bicarbonate FEEDTUBE PRN PRN For Clogged Feeding Tube Sodium Chloride 10 ml 09/11/19 10:00 09/13/19 09:26 Sodium Chloride Flush Syringe 10 Ml IV 10 ml BID LETY Administration Sodium Chloride 10 ml 09/10/19 23:07 09/12/19 04:16 Sodium Chloride Flush Syringe 10 Ml IV 10 ml PRN PRN Administration LINE FLUSH Nutrition/Malnutrition Assess - Dietary Evaluation Nutrition/Malnutrition Findings: Nutrition Notes Start: 09/11/19 09:00 Freq: Status: Active Protocol: Document 09/12/19 08:22 LM (Rec: 09/12/19 08:30 LM [id number]) Nutrition Notes Need for Assessment generated from: MD Order Initial or Follow up Reassessment Current Diagnosis Acute Kidney Injury,Diabetes, Sepsis,Hyperlipidemia Other Pertinent Diagnosis Parkinsons disease, fever, R foot/L hip/sacral wounds, dementia Current Diet NPO Labs/Tests Na 150 K 3.5 BG 180 Pertinent Medications Reviewed Height 5 ft 6 in Weight 66.4 kg [place] Body Weight (kg) 64.54 BMI 23.6 Weight Status Appropriate Subjective/Other Information MD consult for TF. Pt is nonverbal, on venturi mask, and has PEG. Pt with weak cuprous chloride operator strength. Burn Absent Trauma Absent Current % PO Negligible Minimum of two criteria No Reduced Lmsw Strength Measurably Reduced (severe) #2 Nutrition Diagnosis Inadequate oral intake Etiology Dementia As Evidenced by Signs and Symptoms pt requiring PEG #1 Nutrition Diagnosis Increased nutrient needs ( specify in comment below) Diagnosis Progress(for reassessment Continues documentation) Is patient on ventilator? No Is Patient Ambulatory and/or Out of Bed No REE-([facility]-confined to bed) 7407.005 Calculation Used for Recommendations [facility] Additional Notes Protein: 53-100g (0.8-1.5g/kg) ROXANNE and wound needs Fluid: 1 ml/kcal Nutrition Intervention Change Diet Order: TF Nutrition Support: Glucerna 1.2 at 55ml/hr Flush 200ml q4h for hypernatremia Flush 90ml q4h once resolved Kcal 1,584 Protein (gm) 79 Fluid (mL) 1,063 Goal #1 TF start/tolerance Anticipated Discharge Needs: TF Follow-Up By: 09/16/19 Additional Comments F/U for TF start/tolerance, Na /K labs
[2019-09-13] MEDS ORDERED: DEXTROSE 50% IN WATER (25GM) 50 ML SYRINGE IV PRN (16:51)
[2019-09-13] MEDS ORDERED: INSULIN LISPRO 100 UNIT/ML SUB-Q SCH (18:00)
[2019-09-13] MEDS: VANCOMYCIN/NS 1 GM/250 ML 1 GM/250 ML BAG IV SCH (21:41)
[2019-09-13] MEDS ORDERED: INSULIN GLARGINE 100 UNITS/ML SUB-Q SCH (22:00)
[2019-09-14] MEDS: ACETAMINOPHEN 325 MG TAB PO PRN ×2 (06:26→21:51)
--- NOTE | 2019-09-14 09:02 | Progress Note ---
Assessment and Plan Acute Renal Failure likely secondary to ATN secondary to Sepsis and Hypotension Severe Sepsis UTI Dementia DM Hypernatremia Plan: -ROXANNE resolved -started on D5W 75 cc/h for rising sodium, repeated BP is pending -CT of abd/pelvis- showed mild, symmetric bilateral ureteronephrosis- can f/u with Urology outpatiently -Avoid nephrotoxic agents -Monitor I/O's -Renally dose medications -Continue to monitor Subjective Date of service: 09/14/19 Principal diagnosis: ROXANNE Interval history: no overnight events Objective - Vital Signs Vital signs: Vital Signs - 12hr 09/13/19 09/13/19 09/14/19 22:00 23:11 03:54 Temperature 99.7 F H 100.7 F H Pulse Rate 84 86 92 H Pulse Rate [ 82 Apical] Respiratory 22 18 18 Rate Blood Pressure 145/68 147/85 O2 Sat by Pulse 97 98 99 Oximetry 09/14/19 09/14/19 08:27 08:31 Temperature 99.2 F 98.3 F Pulse Rate 91 H 96 H Pulse Rate [ Apical] Respiratory 18 18 Rate Blood Pressure 150/83 144/88 O2 Sat by Pulse 98 95 Oximetry - Lab 09/13/19 03:55 09/13/19 03:55 Most recent lab results Calcium 8.8 mg/dL (8.4-10.2) 09/13/19 03:55 Magnesium 2.30 mg/dL (1.7-2.3) 09/12/19 05:39 Medications & Allergies - Medications Allergies/Adverse Reactions: Allergies MINE Inhibitors Allergy (Verified 09/11/19 11:33) Unknown atorvastatin Allergy (Verified 09/11/19 11:33) Unknown erythromycin base Allergy (Verified 09/11/19 11:33) Unknown felodipine Allergy (Verified 09/11/19 11:33) Unknown lisinopril Allergy (Verified 09/11/19 11:33) Unknown Penicillins Allergy (Verified 09/11/19 11:33) Unknown simvastatin Allergy (Verified 09/11/19 11:33) Unknown Home Medications: Home Medications Medication Instructions Recorded Confirmed Last Taken Type Acetaminophen [Acetaminophen ORAL 160 mg PO Q4HR PRN 09/10/19 09/10/19 Unknown History LIQ] Aspirin [Aspirin BABY CHEW TAB] 81 mg PO QDAY 09/10/19 09/10/19 Unknown History Baclofen [Ozobax] 5 mg PO BID 09/10/19 09/10/19 Unknown History Brimonidine Tartrate [Brimonidine 1 drop OU Q8HR 09/10/19 09/10/19 Unknown History Tartrate 0.2%] Cholecalciferol (Vitamin D3) 1,000 unit PO QDAY 09/10/19 09/10/19 Unknown History [Vitamin D3 500U/5ML] Docusate Sodium [Colace ORAL LIQ] 100 mg FEEDTUBE QDAY 09/10/19 09/10/19 Unknown History Emollient Combination No.112 454 gm TP Q6HR 09/10/19 09/10/19 Unknown History [Emollient Cream] Gabapentin [Neurontin] 300 mg PO Q8HR 09/10/19 09/10/19 Unknown History Insulin Glargine,Hum.rec.anlog 28 unit SQ QAM 09/10/19 09/10/19 Unknown History [Basaglar Kwikpen U-100] Latanoprost 0.005% [Xalatan 0.005%] 1 drop OP QPM 09/10/19 09/10/19 Unknown History Levothyroxine [Synthroid] 100 mcg PO QAM 09/10/19 09/10/19 Unknown History Lidocaine 5 gm TP Q12HR 09/10/19 09/10/19 Unknown History Lispro Insulin [HumaLOG] 0 unit SQ ACHS 09/10/19 09/10/19 Unknown History Magnesium Hydroxide [Milk of 30 mg PO QDAY 09/10/19 09/10/19 Unknown History Magnesia] Melatonin 3 mg PO QHS 09/10/19 09/10/19 Unknown History Metoprolol [Lopressor] 12.5 mg PO BID 09/10/19 09/10/19 Unknown History Multivitamin [Multiple Vitamins] 1 each PO QDAY 09/10/19 09/10/19 Unknown Histo ry Nutritional Supplement/Fiber 30 ml PO QDAY 09/10/19 09/10/19 Unknown History [Promote with Fiber Liquid] Quetiapine Fumarate [SEROquel XR] 50 mg PO QHS 09/10/19 09/10/19 Unknown History Sennosides [Senna] 8.6 mg PO QDAY 09/10/19 09/10/19 Unknown History metroNIDAZOLE [metroNIDAZOLE GEL 55 gm TP QDAY 09/10/19 09/10/19 Unknown History 1% TOPICAL] traMADoL [Ultram] 50 mg PO Q8HR 09/10/19 09/10/19 Unknown History Active Medications: Generic Name Dose Route Start Last Admin Trade Name Freq PRN Reason Stop Dose Admin Acetaminophen 650 mg 09/10/19 23:07 09/14/19 06:26 Tylenol PO 650 mg Q6H PRN Administration Pain MILD(1-3)/Fever >100.5/VAZQUEZ Acetaminophen 650 mg 09/10/19 23:07 09/11/19 21:32 Tylenol [place] 650 mg Q6H PRN Administration Pain MILD(1-3)/Fever >100.5/VAZQUEZ Lipase/Protease/Amylase 1 each 09/11/19 19:[address] 10,500 Unit FEEDTUBE PRN PRN For Clogged Feeding Tube Dextrose 50 ml 09/13/19 16:51 D50w (25gm) Syringe IV Q30MIN PRN Hypoglycemia Protocol Famotidine 20 mg 09/12/19 10:00 09/13/19 21:42 Pepcid IV 20 mg BID LETY Administration Heparin Sodium (Porcine) 5,000 unit 09/11/19 10:00 09/13/19 21:42 Heparin SUB-Q 5,000 unit Q12HR LETY Administration Cefepime HCl 1 gm in 100 mls @ 200 mls/hr 09/11/19 12:00 09/13/19 23:53 Cefepime/Ns 1 Gm/100 Ml IV 200 mls/hr Q12H LETY Administration Protocol Vancomycin HCl 1 gm in 250 mls @ 167.007 mls/hr 09/11/19 22:00 09/13/19 21:41 Vancomycin/Ns 1 Gm/250 Ml IV 167.007 mls/hr Q24H LETY Administration Dextrose 1,000 mls @ 75 mls/hr 09/13/19 12:00 09/13/19 23:54 D5w IV 75 mls/hr DIRECT [facility] Administration Insulin Glargine 10 units 09/13/19 22:00 09/13/19 23:54 Lantus SUB-Q 10 units QHS [facility] Administration Insulin Human Lispro 0 unit 09/14/19 18:00 Humalog SUB-Q Q6H [facility] Protocol Naloxone HCl 0.1 mg 09/10/19 23:07 Naloxone IV Q2MIN PRN Res Rate </= 8 or 02 SAT < 92% Simple Syrup 15 ml 09/11/19 19:04 Simple Syrup FEEDTUBE PRN PRN Hypoglycemia Simple Syrup 30 ml 09/11/19 19:04 Simple Syrup FEEDTUBE PRN PRN Hypoglycemia Sodium Bicarbonate 325 mg 09/11/19 19:04 Sodium Bicarbonate FEEDTUBE PRN PRN For Clogged Feeding Tube Sodium Chloride 10 ml 09/11/19 10:00 09/13/19 21:42 Sodium Chloride Flush Syringe 10 Ml IV 10 ml BID [facility] Administration Sodium Chloride 10 ml 09/10/19 23:07 09/12/19 04:16 Sodium Chloride Flush Syringe 10 Ml IV 10 ml PRN PRN Administration LINE FLUSH
[2019-09-14] MEDS: FAMOTIDINE 20 MG/2 ML INJ IV SCH ×2 (09:18→21:50)
[2019-09-14] MEDS: HEPARIN 5,000 UNIT/1 ML VIAL SUB-Q SCH ×2 (09:18→21:50)
[2019-09-14 10:26] LABS: BUN/Creatinine Ratio 27; Blood Urea Nitrogen 19 mg/dL (9-20); Calcium 8.5 mg/dL (8.4-10.2); Hemolysis Index 1
[2019-09-14] MEDS: VANCOMYCIN/NS 1 GM/250 ML 1 GM/250 ML BAG IV SCH ×2 (11:35→21:50)
--- NOTE | 2019-09-14 11:35 | Progress Note ---
Assessment and Plan - Patient Problems (1) Non-STEMI (non-ST elevated myocardial infarction) Current Visit: Yes Status: Acute Plan to address problem: Has resolved secondary to acute renal failure and decreased perfusion. No further work-up needed at this time. (2) Acute renal failure Current Visit: Yes Status: Acute Qualifiers: Acute renal failure type: unspecified Qualified Code(s): N17.9 - Acute kidney failure, unspecified Plan to address problem: Acute renal failure has resolved. Patient did have episode of hypokalemia which will be corrected today. (3) Lactic acidosis Current Visit: Yes Status: Acute Plan to address problem: Secondary to severe sepsis. (4) Septic shock Current Visit: Yes Status: Acute Plan to address problem: Most likely source urine at this time. Continue cefepime Vanco. Patient fever curve is coming down leukocytosis improving lactic acid has resolved. Clinically patient appears to be more alert as well. Still has fever we will continue present antibiotic medicines at this time. (5) Type 2 diabetes mellitus with foot ulcer Current Visit: Yes Status: Acute Plan to address problem: Currently suboptimally controlled. Not on sliding scale. Add sliding scale and long-acting insulin. (6) Hypokalemia Current Visit: Yes Status: Acute Plan to address problem: Replace p.o. and IV today. History Interval history: Patient confused today not answering any questions. Patient did track me today with eyes. Still nonverbal consistent with dementia. Fever curve coming down. From 102 now to 100. Patient was tested COVID negative. Otherwise hospital course has been unremarkable over the p.m. Hospitalist Physical - Constitutional Vitals: Temp Pulse Resp BP Pulse Ox 98.3 F 96 H 18 144/88 95 09/14/19 08:31 09/14/19 08:31 09/14/19 08:31 09/14/19 08:31 09/14/19 08:31 General appearance: Present: mild distress, cachectic - EENT Eyes: Present: PERRL, EOM intact ENT: hearing intact, clear oral mucosa, dentition normal - Neck Neck: Present: supple, normal ROM - Respiratory Respiratory effort: normal - Cardiovascular Rhythm: regular - Extremities Extremities: No edema, normal temperature, normal color Peripheral Pulses: within normal limits - Abdominal General gastrointestinal: soft, non-tender, normal bowel sounds, no h epatomegaly, no splenomegaly, no mass - Integumentary Integumentary: Present: clear, warm, dry - Psychiatric Psychiatric: appropriate mood/affect Results - Labs CBC & Chem 7: 09/13/19 03:55 09/14/19 09:47 Labs: Laboratory Last Values WBC 7.7 K/mm3 (4.5-11.0) 09/13/19 03:55 RBC 3.46 M/mm3 (3.65-5.03) L 09/13/19 03:55 Hgb 9.9 gm/dl (11.8-15.2) L 09/13/19 03:55 Hct 30.4 % (35.5-45.6) L 09/13/19 03:55 MCV 88 fl (84-94) 09/13/19 03:55 MCH 29 pg (28-32) 09/13/19 03:55 MCHC 33 % (32-34) 09/13/19 03:55 RDW 18.1 % (13.2-15.2) H 09/13/19 03:55 Plt Count 144 K/mm3 (140-440) 09/13/19 03:55 Add Manual Diff Complete 09/13/19 03:55 Total Counted 100 09/13/19 03:55 Seg Neutrophils % Plaster Mixer 09/13/19 03:55 Seg Neuts % (Manual) 93.0 % (40.0-70.0) H 09/13/19 03:55 Band Neutrophils % 4.0 % 09/13/19 03:55 Lymphocytes % (Manual) 2.0 % (13.4-35.0) L 09/13/19 03:55 Reactive Lymphs % (Man) 0 % 09/13/19 03:55 Monocytes % (Manual) 1.0 % (0.0-7.3) 09/13/19 03:55 Eosinophils % (Manual) 0 % (0.0-4.3) 09/13/19 03:55 Basophils % (Manual) 0 % (0.0-1.8) 09/13/19 03:55 Metamyelocytes % 0 % 09/13/19 03:55 Myelocytes % 0 % 09/13/19 03:55 Promyelocytes % 0 % 09/13/19 03:55 Blast Cells % 0 % 09/13/19 03:55 Nucleated RBC % Not Reportable 09/13/19 03:55 Seg Neutrophils # Man 7.2 K/mm3 (1.8-7.7) 09/13/19 03:55 Band Neutrophils # 0.3 K/mm3 09/13/19 03:55 Lymphocytes # (Manual) 0.2 K/mm3 (1.2-5.4) L 09/13/19 03:55 Abs React Lymphs (Man) 0.0 K/mm3 09/13/19 03:55 Monocytes # (Manual) 0.1 K/mm3 (0.0-0.8) 09/13/19 03:55 Eosinophils # (Manual) 0.0 K/mm3 (0.0-0.4) 09/13/19 03:55 Basophils # (Manual) 0.0 K/mm3 (0.0-0.1) 09/13/19 03:55 Metamyelocytes # 0.0 K/mm3 09/13/19 03:55 Myelocytes # 0.0 K/mm3 09/13/19 03:55 Promyelocytes # 0.0 K/mm3 09/13/19 03:55 Blast Cells # 0.0 K/mm3 09/13/19 03:55 WBC Morphology Not Reportable 09/13/19 03:55 Hypersegmented Neuts Not Reportable 09/13/19 03:55 Hyposegmented Neuts Not Reportable 09/13/19 03:55 Hypogranular Neuts Not Reportable 09/13/19 03:55 Smudge Cells Not Reportable 09/13/19 03:55 Toxic Granulation Not Reportable 09/13/19 03:55 Toxic Vacuolation Not Reportable 09/13/19 03:55 Dohle Bodies Not Reportable 09/13/19 03:55 Pelger-Huet Anomaly Not Reportable 09/13/19 03:55 Deny Rods Not Reportable 09/13/19 03:55 Platelet Estimate Consistent w auto 09/13/19 03:55 Clumped Platelets Not Reportable 09/13/19 03:55 Plt Clumps, EDTA Not Reportable 09/13/19 03:55 Large Platelets Not Reportable 09/13/19 03:55 Giant Platelets Not Reportable 09/13/19 03:55 Platelet Satelliting Not Reportable 09/13/19 03:55 Plt Morphology Comment Not Reportable 09/13/19 03:55 RBC Morphology Not Reportable 09/13/19 03:55 Dimorphic RBCs Not Reportable 09/13/19 03:55 Polychromasia Not Reportable 09/13/19 03:55 Hypochromasia Not Reportable 09/13/19 03:55 Poikilocytosis Not Reportable 09/13/19 03:55 Anisocytosis 1+ 09/13/19 03:55 Microcytosis Not Reportable 09/13/19 03:55 Macrocytosis Not Reportable 09/13/19 03:55 Spherocytes Not Reportable 09/13/19 03:55 Pappenheimer Bodies Not Reportable 09/13/19 03:55 Sickle Cells Not Reportable 09/13/19 03:55 Target Cells Not Reportable 09/13/19 03:55 Tear Drop Cells Not Reportable 09/13/19 03:55 Ovalocytes Not Reportable 09/13/19 03:55 Helmet Cells Not Reportable 09/13/19 03:55 Leonardo-Delphos Bodies Not Reportable 09/13/19 03:55 [place] Rings Not Reportable 09/13/19 03:55 Marlo Cells Not Reportable 09/13/19 03:55 Bite Cells Not Reportable 09/13/19 03:55 Crenated Cell Not Reportable 09/13/19 03:55 Elliptocytes Not Reportable 09/13/19 03:55 Acanthocytes (Spur) Not Reportable 09/13/19 03:55 Rouleaux Not Reportable 09/13/19 03:55 Hemoglobin C Crystals Not Reportable 09/13/19 03:55 Schistocytes Not Reportable 09/13/19 03:55 Malaria parasites Not Reportable 09/13/19 03:55 Gonsalo Bodies Not Reportable 09/13/19 03:55 Hem Pathologist Commnt No 09/13/19 03:55 VBG pH 7.160 (7.320-7.420) L* 09/10/19 18:15 Sodium 147 mmol/L (137-145) H 09/14/19 09:47 Potassium 2.9 mmol/L (3.6-5.0) L* 09/14/19 09:47 Chloride 112.9 mmol/L (98-107) H 09/14/19 09:47 Carbon Dioxide 20 mmol/L (22-30) L 09/14/19 09:47 Anion Gap 17 mmol/L 09/14/19 09:47 BUN 19 mg/dL (9-20) 09/14/19 09:47 Creatinine 0.7 mg/dL (0.8-1.5) L 09/14/19 09:47 Estimated GFR > 60 ml/min 09/14/19 09:47 BUN/Creatinine Ratio 27 % 09/14/19 09:47 Glucose 264 mg/dL (75-100) H 09/14/19 09:47 POC Glucose 209 (70-105) H 09/14/19 05:46 Lactic Acid 1.30 mmol/L (0.7-2.0) 09/11/19 Unknown Calcium 8.5 mg/dL (8.4-10.2) 09/14/19 09:47 Magnesium 2.30 mg/dL (1.7-2.3) 09/12/19 05:39 Ferritin 204.6 ng/mL (13.0-400.0) 09/10/19 16:20 Total Bilirubin 0.20 mg/dL (0.1-1.2) 09/11/19 04:00 AST 22 units/L (5-40) 09/11/19 04:00 ALT 15 units/L (7-56) 09/11/19 04:00 Alkaline Phosphatase 86 units/L (35-129) 09/11/19 04:00 Lactate Dehydrogenase 308 units/L (91-180) H 09/10/19 16:32 Troponin T 0.238 ng/mL (0.00-0.029) H* 09/10/19 16:20 C-Reactive Protein 16.50 mg/dL (0.00-1.30) H 09/10/19 16:32 Total Protein 5.9 g/dL (6.3-8.2) L 09/11/19 04:00 Albumin 2.5 g/dL (3.9-5) L 09/11/19 04:00 Albumin/Globulin Ratio 0.7 % 09/11/19 04:00 Prealbumin 0.090 g/L (0.200-0.400) L 09/12/19 14:57 Triglycerides 89 mg/dL (2-149) 09/10/19 16:20 Cholesterol 101 mg/dL (50-199) 09/10/19 16:20 LDL Cholesterol Direct 61 mg/dL (50-130) 09/10/19 16:20 HDL Cholesterol 31 mg/dL (40-59) L 09/10/19 16:20 Cholesterol/HDL Ratio 3.25 % 09/10/19 16:20 Procalcitonin 160.37 ng/mL (<0.15) 09/10/19 16:20 TSH 2.520 mlU/mL (0.270-4.200) 09/10/19 16:20 Urine Color Red (Yellow) 09/10/19 Unknown Urine Turbidity Cloudy (Clear) 09/10/19 Unknown Urine pH 7.0 (5.0-7.0) 09/10/19 Unknown Ur Specific [place] 1.014 (1.003-1.030) 09/10/19 Unknown Urine Protein >500 mg/dL (Negative) 09/10/19 Unknown Urine Glucose (UA) Neg mg/dL (Negative) 09/10/19 Unknown Urine Ketones Neg mg/dL (Negative) 09/10/19 Unknown Urine Blood Mod (Negative) 09/10/19 Unknown Urine Nitrite Neg (Negative) 09/10/19 Unknown Urine Bilirubin Neg (Negative) 09/10/19 Unknown Urine Urobilinogen < 2.0 mg/dL (<2.0) 09/10/19 Unknown Ur Leukocyte Esterase Mod (Negative) 09/10/19 Unknown Urine WBC (Auto) 80.0 /HPF (0.0-6.0) H 09/10/19 Unknown Urine RBC (Auto) > 182.0 /HPF (0.0-6.0) 09/10/19 Unknown U Epithel Cells (Auto) < 1.0 /HPF (0-13.0) 09/10/19 Unknown Urine Bacteria (Auto) 1+ /HPF (Negative) 09/10/19 Unknown Vancomycin Trough 7.6 ug/mL (5.0-20.0) 09/13/19 20:16 Coronavirus (PCR) Negative (Negative) 09/11/19 10:59 Influenza A (Rapid) Negative (Negative) 09/10/19 Unknown Influenza B (Rapid) Negative (Negative) 09/10/19 Unknown Microbiology: Microbiology 09/10/19 Unknown Peripheral/Venous Blood Culture - Final Proteus Mirabilis 09/10/19 Unknown Peripheral/Venous Blood Culture - Final Proteus Mirabilis Cole/IV: Voiding Method Indwelling Catheter IV Catheter Type [Left INT / Saline Lock Antecubital] Active Medications - Current Medications Current Medications: Generic Name Dose Route Start Last Admin Trade Name Freq PRN Reason Stop Dose Admin Acetaminophen 650 mg 09/10/19 23:07 09/14/19 06:26 Tylenol PO 650 mg Q6H PRN Administration Pain MILD(1-3)/Fever >100.5/VAZQUEZ Acetaminophen 650 mg 09/10/19 23:07 09/11/19 21:32 Tylenol NE 650 mg Q6H PRN Administration Pain MILD(1-3)/Fever >100.5/VAZQUEZ Lipase/Protease/Amylase 1 each 09/11/19 19:[address] 10,500 Unit FEEDTUBE PRN PRN For Clogged Feeding Tube Dextrose 50 ml 09/13/19 16:51 D50w (25gm) Syringe IV Q30MIN PRN Hypoglycemia Protocol Famotidine 20 mg 09/12/19 10:00 09/14/19 09:18 Pepcid IV 20 mg BID LETY Administration Heparin Sodium (Porcine) 5,000 unit 09/11/19 10:00 09/14/19 09:18 Heparin SUB-Q 5,000 unit Q12HR LETY Administration Cefepime HCl 1 gm in 100 mls @ 200 mls/hr 09/11/19 12:00 09/13/19 23:53 Cefepime/Ns 1 Gm/100 Ml IV 200 mls/hr Q12H LETY Administration Protocol Dextrose 1,000 mls @ 75 mls/hr 09/13/19 12:00 09/13/19 23:54 D5w IV 75 mls/hr DIRECT LETY Administration Vancomycin HCl 1 gm in 250 mls @ 167.007 mls/hr 09/14/19 10:00 Vancomycin/Ns 1 Gm/250 Ml IV Q12H [facility] Insulin Glargine 10 units 09/13/19 22:00 09/13/19 23:54 Lantus SUB-Q 10 units QHS LETY Administration Insulin Human Lispro 0 unit 09/14/19 18:00 Humalog SUB-Q Q6H [facility] Protocol Naloxone HCl 0.1 mg 09/10/19 23:07 Naloxone IV Q2MIN PRN Res Rate </= 8 or 02 SAT < 92% Simple Syrup 15 ml 09/11/19 19:04 Simple Syrup FEEDTUBE PRN PRN Hypoglycemia Simple Syrup 30 ml 09/11/19 19:04 Simple Syrup FEEDTUBE PRN PRN Hypoglycemia Sodium Bicarbonate 325 mg 09/11/19 19:04 Sodium Bicarbonate FEEDTUBE PRN PRN For Clogged Feeding Tube Sodium Chloride 10 ml 09/11/19 10:00 09/14/19 09:19 Sodium Chloride Flush Syringe 10 Ml IV 10 ml BID LETY Administration Sodium Chloride 10 ml 09/10/19 23:07 09/12/19 04:16 Sodium Chloride Flush Syringe 10 Ml IV 10 ml PRN PRN Administration LINE FLUSH Nutrition/Malnutrition Assess - Dietary Evaluation Nutrition/Malnutrition Findings: Nutrition Notes Start: 09/11/19 09:00 Freq: Status: Active Protocol: Document 09/12/19 08:22 LM (Rec: 09/12/19 08:30 LM [id number]) Nutrition Notes Need for Assessment generated from: MD Order Initial or Follow up Reassessment Current Diagnosis Acute Kidney Injury,Diabetes, Sepsis,Hyperlipidemia Other Pertinent Diagnosis Parkinsons disease, fever, R foot/L hip/sacral wounds, dementia Current Diet NPO Labs/Tests Na 150 K 3.5 BG 180 Pertinent Medications Reviewed Height 5 ft 6 in Weight 66.4 kg Grace Body Weight (kg) 64.54 BMI 23.6 Weight Status Appropriate Subjective/Other Information MD consult for TF. Pt is nonverbal, on venturi mask, and has PEG. 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 Burn Absent Trauma Absent Current % PO Negligible Minimum of two criteria No Reduced Manufacturing Advisor Strength Measurably Reduced (severe) #2 Nutrition Diagnosis Inadequate oral intake Etiology Dementia As Evidenced by Signs and Symptoms pt requiring PEG #1 Nutrition Diagnosis Increased nutrient needs ( specify in comment below) Diagnosis Progress(for reassessment Continues documentation) Is patient on ventilator? No Is Patient Ambulatory and/or Out of Bed No REE-([facility]-confined to bed) [phone] Calculation Used for Recommendations [facility] Additional Notes Protein: 53-100g (0.8-1.5g/kg) ROXANNE and wound needs Fluid: 1 ml/kcal Nutrition Intervention Change Diet Order: TF Nutrition Support: Glucerna 1.2 at 55ml/hr Flush 200ml q4h for hypernatremia Flush 90ml q4h once resolved Kcal 1,584 Protein (gm) 79 Fluid (mL) 1,063 Goal #1 TF start/tolerance Anticipated Discharge Needs: TF Follow-Up By: 09/16/19 Additional Comments F/U for TF start/tolerance, Na /K labs
[2019-09-14] MEDS: POTASSIUM CHLORIDE 10 MEQ 10 MEQ/100 ML BAG IV SCH ×2 (12:55→12:57)
[2019-09-14] MEDS: CEFEPIME/NS 1 GM/100 ML 1 GM/100 ML BAG IV SCH (12:58)
[2019-09-14] MEDS: INSULIN LISPRO 100 UNIT/ML SUB-Q SCH (18:31)
[2019-09-14] MEDS: DEXTROSE 5% IN WATER 1,000 ML IV SCH (21:50)
[2019-09-14] MEDS ORDERED: INSULIN GLARGINE 100 UNITS/ML SUB-Q SCH (22:00)
[2019-09-15] MEDS: INSULIN LISPRO 100 UNIT/ML SUB-Q SCH ×3 (00:09→12:13)
[2019-09-15] MEDS: CEFEPIME/NS 1 GM/100 ML 1 GM/100 ML BAG IV SCH ×2 (00:09→11:30)
[2019-09-15 04:58] LABS: Basophils % (Auto) 0.1 % (0.0-1.8); Eosinophils # (Auto) 0.2 K/mm3 (0.0-0.4); Eosinophils % (Auto) 3.1 % (0.0-4.3); Hematocrit 31.5 % (35.5-45.6); Hemoglobin 10.2 gm/dl (11.8-15.2); Lymphocytes # (Auto) 0.6 K/mm3 (1.2-5.4); Lymphocytes % (Auto) 9.7 % (13.4-35.0); Mean Corpuscular HGB Conc 32 % (32-34); Mean Corpuscular Volume 89 fl (84-94); Monocytes # (Auto) 0.5 K/mm3 (0.0-0.8); Monocytes % (Auto) 7.3 % (0.0-7.3); Platelet Count 127 K/mm3 (140-440); Red Blood Count 3.56 M/mm3 (3.65-5.03); Red Cell Distribution Width 17.9 % (13.2-15.2)
[2019-09-15 07:27] LABS: BUN/Creatinine Ratio 27; Blood Urea Nitrogen 16 mg/dL (9-20); Calcium 8.5 mg/dL (8.4-10.2); Hemolysis Index 13
--- NOTE | 2019-09-15 09:29 | Progress Note ---
Assessment and Plan Acute Renal Failure likely secondary to ATN secondary to Sepsis and Hypotension Severe Sepsis UTI Dementia DM Hypernatremia Plan: -ROXANNE resolved -hypernatremia resolved, will decrease D5W to 50 cc/h, advance water flushes as tolerated -CT of abd/pelvis- showed mild, symmetric bilateral ureteronephrosis- can f/u with Urology outpatiently -Avoid nephrotoxic agents -Monitor I/O's -Renally dose medications -Continue to monitor will sign off, please reconsult if needed Subjective Date of service: 09/15/19 Principal diagnosis: ROXANNE Interval history: on tube feed, tolerating Objective - Vital Signs Vital signs: Vital Signs - 12hr 09/14/19 09/14/19 09/15/19 22:00 23:14 04:14 Temperature 99.1 F 98.8 F Pulse Rate 99 H 92 H 88 Pulse Rate [ 110 H Apical] Pulse Rate [ Left Radial] Pulse Rate [ Right Radial] Respiratory 22 18 19 Rate Blood Pressure 151/76 150/84 O2 Sat by Pulse 97 98 98 Oximetry 09/15/19 09/15/19 09/15/19 07:43 08:28 08:33 Temperature 97.6 F Pulse Rate 94 H Pulse Rate [ Apical] Pulse Rate [ 88 Left Radial] Pulse Rate [ 88 Right Radial] Respiratory 20 18 Rate Blood Pressure 157/82 O2 Sat by Pulse 97 98 98 Oximetry - Lab 09/15/19 04:42 09/15/19 06:40 Most recent lab results Calcium 8.5 mg/dL (8.4-10.2) 09/15/19 06:40 Magnesium 2.30 mg/dL (1.7-2.3) 09/12/19 05:39 Medications & Allergies - Medications Allergies/Adverse Reactions: Allergies MINE Inhibitors Allergy (Verified 09/11/19 11:33) Unknown atorvastatin Allergy (Verified 09/11/19 11:33) Unknown erythromycin base Allergy (Verified 09/11/19 11:33) Unknown felodipine Allergy (Verified 09/11/19 11:33) Unknown lisinopril Allergy (Verified 09/11/19 11:33) Unknown Penicillins Allergy (Verified 09/11/19 11:33) Unknown simvastatin Allergy (Verified 09/11/19 11:33) Unknown Home Medications: Home Medications Medication Instructions Recorded Confirmed Last Taken Type Acetaminophen [Acetaminophen ORAL 160 mg PO Q4HR PRN 09/10/19 09/10/19 Unknown History LIQ] Aspirin [Aspirin BABY CHEW TAB] 81 mg PO QDAY 09/10/19 09/10/19 Unknown History Baclofen [Ozobax] 5 mg PO BID 09/10/19 09/10/19 Unknown History Brimonidine Tartrate [Brimonidine 1 drop OU Q8HR 09/10/19 09/10/19 Unknown History Tartrate 0.2%] Cholecalciferol (Vitamin D3) 1,000 unit PO QDAY 09/10/19 09/10/19 Unknown History [Vitamin D3 500U/5ML] Docusate Sodium [Colace ORAL LIQ] 100 mg FEEDTUBE QDAY 09/10/19 09/10/19 Unknown History Emollient Combination No.112 454 gm TP Q6HR 09/10/19 09/10/19 Unknown History [Emollient Cream] Gabapentin [Neurontin] 300 mg PO Q8HR 09/10/19 09/10/19 Unknown History Insulin Glargine,Hum.rec.anlog 28 unit SQ QAM 09/10/19 09/10/19 Unknown History [Basaglar Kwikpen U-100] Latanoprost 0.005% [Xalatan 0.005%] 1 drop OP QPM 09/10/19 09/10/19 Unknown History Levothyroxine [Synthroid] 100 mcg PO QAM 09/10/19 09/10/19 Unknown History Lidocaine 5 gm TP Q12HR 09/10/19 09/10/19 Unknown History Lispro Insulin [HumaLOG] 0 unit SQ ACHS 09/10/19 09/10/19 Unknown History Magnesium Hydroxide [Milk of 30 mg PO QDAY 09/10/19 09/10/19 Unknown History Magnesia] Melatonin 3 mg PO QHS 09/10/19 09/10/19 Unknown History Metoprolol [Lopressor] 12.5 mg PO BID 09/10/19 09/10/19 Unknown History Multivitamin [Multiple Vitamins] 1 each PO QDAY 09/10/19 09/10/19 Unknown History Nutritional Supplement/Fiber 30 ml PO QDAY 09/10/19 09/10/19 Unknown History [Promote with Fiber Liquid] Quetiapine Fumarate [SEROquel XR] 50 mg PO QHS 09/10/19 09/10/19 Unknown History Sennosides [Senna] 8.6 mg PO QDAY 09/10/19 09/10/19 Unknown History metroNIDAZOLE [metroNIDAZOLE GEL 55 gm TP QDAY 09/10/19 09/10/19 Unknown History 1% TOPICAL] traMADoL [Ultram] 50 mg PO Q8HR 09/10/19 09/10/19 Unknown History Active Medications: Generic Name Dose Route Start Last Admin Trade Name Freq PRN Reason Stop Dose Admin Acetaminophen 650 mg 09/10/19 23:07 09/14/19 21:51 Tylenol PO 650 mg Q6H PRN Administration Pain MILD(1-3)/Fever >100.5/VAZQUEZ Acetaminophen 650 mg 09/10/19 23:07 09/11/19 21:32 Tylenol [place] 650 mg Q6H PRN Administration Pain MILD(1-3)/Fever >100.5/VAZQUEZ Lipase/Protease/Amylase 1 each 09/11/19 19:[address] 10,500 Unit FEEDTUBE PRN PRN For Clogged Feeding Tube Dextrose 50 ml 09/13/19 16:51 D50w (25gm) Syringe IV Q30MIN PRN Hypoglycemia Protocol Famotidine 20 mg 09/12/19 10:00 09/14/19 21:50 Pepcid IV 20 mg BID LETY Administration Heparin Sodium (Porcine) 5,000 unit 09/11/19 10:00 09/14/19 21:50 Heparin SUB-Q 5,000 unit Q12HR LETY Administration Cefepime HCl 1 gm in 100 mls @ 200 mls/hr 09/11/19 12:00 09/15/19 00:09 Cefepime/Ns 1 Gm/100 Ml IV 200 mls/hr Q12H LETY Administration Protocol Dextrose 1,000 mls @ 50 mls/hr 09/13/19 12:00 09/14/19 21:50 D5w IV 75 mls/hr DIRECT LETY Administration Vancomycin HCl 1 gm in 250 mls @ 167.007 mls/hr 09/14/19 10:00 09/14/19 21:50 Vancomycin/Ns 1 Gm/250 Ml IV 167.007 mls/hr Q12H LETY Administration Insulin Glargine 15 units 09/14/19 22:00 09/15/19 00:09 Lantus SUB-Q 15 units QHS LETY Administration Insulin Human Lispro 0 unit 09/14/19 18:00 09/15/19 06:02 Humalog SUB-Q 2 unit Q6H LETY Administration Protocol Naloxone HCl 0.1 mg 09/10/19 23:07 Naloxone IV Q2MIN PRN Res Rate </= 8 or 02 SAT < 92% Simple Syrup 15 ml 09/11/19 19:04 Simple Syrup FEEDTUBE PRN PRN Hypoglycemia Simple Syrup 30 ml 09/11/19 19:04 Simple Syrup FEEDTUBE PRN PRN Hypoglycemia Sodium Bicarbonate 325 mg 09/11/19 19:04 Sodium Bicarbonate FEEDTUBE PRN PRN For Clogged Feeding Tube Sodium Chloride 10 ml 09/11/19 10:00 09/14/19 21:52 Sodium Chloride Flush Syringe 10 Ml IV 10 ml BID LETY Administration Sodium Chloride 10 ml 09/10/19 23:07 09/12/19 04:16 Sodium Chloride Flush Syringe 10 Ml IV 10 ml PRN PRN Administration LINE FLUSH
[2019-09-15] MEDS: FAMOTIDINE 20 MG/2 ML INJ IV SCH (09:35)
[2019-09-15] MEDS: VANCOMYCIN/NS 1 GM/250 ML 1 GM/250 ML BAG IV SCH (09:36)
[2019-09-15] MEDS: HEPARIN 5,000 UNIT/1 ML VIAL SUB-Q SCH (09:36)
--- NOTE | 2019-09-15 11:55 | Discharge Summary ---
Providers - Providers Date of Admission: 09/10/19 21:21 Date of discharge: 09/15/19 Attending physician: SAMANTHA SÁNCHEZ 09/10/19 23:07 Consult to Dietitian/Nutrition [CONS] Routine Physician Instructions: Reason For Exam: Reason for Consult: Diet education 09/11/19 18:00 Consult to Wound/ET Nurse [CONS] Routine Reason For Exam: wound eval 09/11/19 19:04 Consult to Dietitian/Nutrition [CONS] Routine Physician Instructions: Assess nutrtn needs, initiate, modify, manage TF Reason For Exam: Reason for Consult: Write/Manage Tube Feeding Reason for Consult: Write/Manage Tube Feeding 09/11/19 19:06 Consult to Physician [CONS] Routine Comment: Consulting Provider: ADAM XIAO Physician Instructions: Reason For Exam: Acute kidney injury 09/12/19 13:24 Consult to Physician [CONS] Routine Comment: Consulting Provider: JACKELIN CALLE Physician Instructions: evaluate for possible debridement Reason For Exam: right heel ulcer Primary care physician: CATHERINE DICKEY Hospitalization Condition: Good Hospital course: Patient 74-year-old with a history of dementia GERD COPD presented with seizure activity and altered mental status. Patient hospital course was complicated by fever. Work-up was obtained to evaluate altered mental status. Patient had a head CT just showed microvascular changes white matter disease consistent with his encephalopathy. Patient also had abdominal pelvis CT unremarkable as well. Patient had no further seizure activity. Patient was back at baseline mental status. Patient was found to have a right heel ulcer which thought could be possible source of infection. Evaluated by general surgery patient needed debridement of heel. Was unable to find family. Patient has longterm facility. Surgery recommends wound care. Patient can have surgical debridement as outpatient to follow-up in wound clinic at [facility]. Patient is discharged in stable condition without fever. On p.o. antibiotics as well with follow-up for debridement of right heel wound. Patient is been afebrile for 48 hours. Patient also evaluated for COVID was COVID negative. Disposition: DC-30 STILL A PATIENT - Discharge Diagnoses (1) Non-STEMI (non-ST elevated myocardial infarction) Status: Ruled-out (2) Acute renal failure Status: Acute Qualifiers: Acute renal failure type: unspecified Qualified Code(s): N17.9 - Acute kidney failure, unspecified Comment: Resolved secondary to prerenal azotemia. (3) Lactic acidosis Status: Acute Comment: Was secondary to sepsis most likely from left foot wound. Resolving. (4) Septic shock Status: Acute (5) Type 2 diabetes mellitus with foot ulcer Status: Acute Comment: Patient blood sugar uncontrolled. Need tighter control continue to titrate up on long-acting insulin. Sliding scale insulin as well. (6) Hypokalemia Status: Acute Comment: Continue to correct. Add p.o. potassium chloride today. Core Measure Documentation - Palliative Care Palliative Care/ Comfort Measures: Not Applicable - Core Measures Any of the following diagnoses?: none Exam - Constitutional Vitals: Temp Pulse Resp BP Pulse Ox 97.6 F 94 H 18 157/82 98 09/15/19 08:28 09/15/19 08:28 09/15/19 08:28 09/15/19 08:28 09/15/19 08:33 General appearance: Present: no acute distress, well-nourished - EENT Eyes: Present: PERRL ENT: hearing intact, clear oral mucosa - Neck Neck: Present: supple, normal ROM - Respiratory Respiratory effort: normal Respiratory: bilateral: CTA - Cardiovascular Heart Sounds: Present: S1 & S2. Absent: rub, click - Extremities Extremities: pulses symmetrical, No edema Peripheral Pulses: within normal limits - Abdominal General gastrointestinal: Present: soft, non-tender, non-distended, normal bowel sounds Male genitourinary: Present: normal - Integumentary Integumentary: Present: clear, warm, dry - Musculoskeletal Musculoskeletal: strength equal bilaterally, other (Right heel decubitus with eschar. Patient will require debridement.) - Psychiatric Psychiatric: appropriate mood/affect, intact judgment & insight - Neurologic Neurologic: CNII-XII intact, moves all extremities Plan Activity: other (Patient essentially bed to chair bound.) Weight Bearing Status: Non-Weight Bearing Diet: diabetic Wound: per wound nurse instructions, other (Local wound care.) Special Instructions: other (Follow-up in wound clinic for surgical debridement. Unable to contact family member.) Follow up with: CATHERINE DICKEY MD [Primary Care Provider] - 3-5 Days
[2019-09-15 12:38] VITALS: BP 156/89
== END 2019-09-15 16:03 | DRG 871 ==
LOC: ED 16:00 → CC1 21:21 → 4A 09-11 15:21
PROVIDERS: ADMIT Hospitalist; ATTEND Internal Medicine
PROC: 05H433Z Insertion of Infusion Device into Left Innominate Vein, Percutaneous Approach (ICD-10-PCS; 2019-09-10)
PROC: B54NZZA Ultrasonography of Left Upper Extremity Veins, Guidance (ICD-10-PCS; 2019-09-10)
PROC: 3E0234Z Introduction of Serum, Toxoid and Vaccine into Muscle, Percutaneous Approach (ICD-10-PCS; principal; 2019-09-12)
DX: A41.9 Sepsis, unspecified organism (principal); R65.21 Severe sepsis with septic shock; N17.0 Acute kidney failure with tubular necrosis; L89.204 Pressure ulcer of unspecified hip, stage 4; E43 Unspecified severe protein-calorie malnutrition; L97.419 Non-pressure chronic ulcer of right heel and midfoot with unspecified severity; G93.40 Encephalopathy, unspecified; E87.0 Hyperosmolality and hypernatremia; N30.01 Acute cystitis with hematuria; D64.9 Anemia, unspecified; F03.90 Unspecified dementia, unspecified severity, without behavioral disturbance, psychotic disturbance, mood disturbance, and anxiety; K21.9 Gastro-esophageal reflux disease without esophagitis; J44.9 Chronic obstructive pulmonary disease, unspecified; E11.621 Type 2 diabetes mellitus with foot ulcer; E87.6 Hypokalemia; I10 Essential (primary) hypertension; G20 Parkinson's disease; E03.9 Hypothyroidism, unspecified; F20.9 Schizophrenia, unspecified; Z68.23 Body mass index [BMI] 23.0-23.9, adult; Z83.3 Family history of diabetes mellitus; Z23 Encounter for immunization; Z88.0 Allergy status to penicillin; Z79.899 Other long term (current) drug therapy; Z79.82 Long term (current) use of aspirin
CPT/HCPCS: 36415; 70450; 71045; 74176; 76770; 80048; 80053; 80061; 80202; 81001; 82140; 82728; 82805; 82962; 83615; 83735; 84134; 84145; 84443; 84484; 85007; 85025; 86140; 87040; 87076; 87086; 87186; 87400; 87635; 90686; 90732; 93005; 93010; 94640; 94760; 99292; G0378; J0692; J0696; J1644; J1720; J1815; J3370; J3411; J3480; J7030; J7050; J7070; J7120